=== PATIENT | female | born 1970 | race Caucasian/White ===

== ENCOUNTER 2021-02-02 14:37 | Outpatient (CLI) | payer BC, SELFPAY ==
[2021-02-02 16:19] LABS: Abs Immature Grans 0.01 10^3/uL (0.0-0.06); Absolute Basophil Count 0.04 10^3/uL (0.0-0.2); Absolute Eosinophil Count 0.25 10^3/uL (0.0-0.7); Absolute Lymphocyte Count 2.14 10^3/uL (1.2-3.4); Absolute Neutrophil Count 3.35 10^3/uL (1.2-6.7); Basophils % 0.6; HCT 39.3 % (36.0-46.0); HGB 13.2 g/dL (11.2-15.7); Immature Grans % 0.2; MCH 29.7 pg (27.0-33.0); MCHC 33.6 % (32.0-36.0); MCV 88.3 fL (80-95); MPV 9.2 fL (8.0-11.0); Monocytes % 7.9; Neutrophils % 53.3; Nucleated RBC 0 %; Platelet Count 292 10^3/uL (130-400); RBC 4.45 10^6/uL (3.93-5.22); RDW 12.8 % (11.7-14.6); RDW-SD 41.8 fL; WBC 6.29 10^3/uL (4.4-10.8)
[2021-02-02 17:07] LABS: ALT 32 U/L (14-59); AST 23 U/L (15-37); Albumin 3.8 g/dL (3.4-5.0); Alkaline Phosphatase 65 U/L (46-116); Anion Gap 6.4 mmol/L (3-11); BUN 9 mg/dL (7-18); Bilirubin, Total 0.3 mg/dL (0.2-1.0); CO2 28.6 mmol/L (21.0-32.0); CREATININE 0.7 mg/dL (0.55-1.02); Calcium 8.8 mg/dL (8.5-10.1); Calculated LDL 70 mg/dL (<100); Chloride 106 mmol/L (98-107); Cholesterol 160 mg/dL (<200); Glucose 117 mg/dL (74-106); HDL Cholesterol 84 mg/dL (40-60); Potassium 4.1 mmol/L (3.5-5.1); Sodium 141 mmol/L (136-145); Total Protein 6.9 g/dL (6.4-8.2); Triglyceride 34 mg/dL (<150)
[2021-02-02 17:43] LABS: Vitamin D 25 Total 29.8 ng/mL (30-100)
== END 2021-02-02 14:38 | disposition home or self-care (01) ==
PROVIDERS: Visit Provider Family Medicine
DX: Z00.00 Encounter for general adult medical examination without abnormal findings (principal)
CPT/HCPCS: 36415; 80053; 80061; 82306; 85025

== ENCOUNTER 2021-11-14 15:18 | Outpatient (REF) | payer BC, SELFPAY ==
[2021-11-16 11:42] LABS: COVID-19 RT-PCR UVMMC Result Negative (Negative)
== END 2021-11-14 15:19 | disposition home or self-care (01) ==
LOC: LBN 15:18
PROVIDERS: Visit Provider Physician Assistant Medical
DX: Z20.822 Contact with and (suspected) exposure to COVID-19 (principal); J06.9 Acute upper respiratory infection, unspecified
CPT/HCPCS: U0003

== ENCOUNTER 2022-08-05 16:19 | Outpatient (REF) | payer BC, SELFPAY ==
--- NOTE | 2022-08-05 13:30 | PAPFT_PTH ---
PATIENT: Susan Hobson LOC: [facility] U#:[id number] AGE/SX: 52/F ROOM: RE08/05/[address]: Ramandeep Elaine : 1970 BED: DIS: 08/05/2022 SPEC #: [id number] RECD: 08/05/22 17:39 STATUS: POLLY REQ #: [id number] FLOYD: 08/05/22 13:[address]: Ramandeep Elaine DEPT: [facility] Cytology RECD BY: Diane Aldana ENTERED: 08/05/22 17:40 SP TYPE: PAPFT OTHR DR: Marielena Local Tissues: 1 - CX/ENDOCX FOR PAP SMEARS Procedures: PAP THIN PREP/UVM Screening HPV DNA PROBE Comments: [id number]
== END 2022-08-05 16:20 | disposition home or self-care (01) ==
LOC: LBN 16:19
PROVIDERS: Visit Provider Advanced Practice Midwife
DX: Z12.4 Encounter for screening for malignant neoplasm of cervix (principal); Z11.51 Encounter for screening for human papillomavirus (HPV)
CPT/HCPCS: 88142; 87624

== ENCOUNTER → 2023-03-25 00:57 | Outpatient (CLI) | payer BC, SELFPAY ==
--- NOTE | 2023-03-25 13:39 | DI.RAD_ITS ---
Exam(s) XR KNEE LT 3V AP,LAT,FLYNN EXAM: XR KNEE LT 3V AP,LAT,FLYNN CLINICAL HISTORY: LT KNEE JOINT PAIN, M25.562, NO TRAUMA. TECHNIQUE: 2D digital imaging was performed of the left knee. Three images were obtained. AP, late ral and PA tunnel views were obtained. COMPARISON: No exams were available for comparison FINDINGS: BONES: No acute fracture is present. No bony destructive lesion is seen. 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 JOINTS: The knee is normally aligned. No joint effusion is seen. No loose body. SOFT TISSUE: Normal. IMPRESSION: 1. No acute fracture or dislocation. 2. 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 DATA REPOSITORY: RADIATION DOSE DELIVERED:
== END ==
PROVIDERS: PCP Physician Assistant; Visit Provider Physician Assistant
DX: M25.562 Pain in left knee (principal); D16.22 Benign neoplasm of long bones of left lower limb
CPT/HCPCS: 73562

== ENCOUNTER → 2023-06-28 00:41 | Outpatient (CLI) | payer BC, SELFPAY ==
--- NOTE | 2023-06-28 07:00 | DI.MRI_ITS ---
Exam(s) MR LOWER JOINT LT WO EXAM: MR LOWER JOINT LT WO CLINICAL HISTORY: L KNEE PAIN,osteochondrome lt tibia,tear lat meniscus,D16.22,S83.282a. TECHNIQUE: Multiplanar multisequence MRI was performed. COMPARISON: CR XR KNEE LT 3V AP,LAT,FLYNN from 03/25/2023 FINDINGS: BONES: There is no fracture or contusion pattern. Note is again made of a projection off the posterio r aspect of the proximal metaphysis of the tibia. It is most consistent with an osteochondroma. The re is mild hyperintense signal seen on the T2 weighted images in the distal aspect of the osteochondr kathrin. There also is small area of hyperintense signal adjacent to the osteochondroma. This can be se en with a bursitis. JOINTS: Articular cartilage is unremarkable. No significant joint effusion is seen. TENDONS: Extensor mechanism: Unremarkable. Medial retinaculum: Unremarkable. Lateral retinaculum: Unremarkable. Popliteus: Unremarkable. MUSCLES: Unremarkable. MENISCI: The medial meniscus is unremarkable. There is mild degenerative signal seen in the body of the medial meniscus. The lateral meniscus is unremarkable. SOFT TISSUES: Unremarkable. LIGAMENTS: Anterior Cruciate: There is a linear area of signal hypointensity paralleling the anterior cruciate l igament on the T2 weighted images. Differential considerations include an infrapatellar plica or a p artial ACL tear. Posterior Cruciate: Unremarkable. Medial Collateral:Unremarkable. Lateral Collateral: Unremarkable. OTHER: IMPRESSION: 1. No evidence of a meniscal tear. 2. Linear area of signal hypointensity paralleling the anterior cruciate ligament on the T2 weighted images. Differential considerations include an infrapatellar plica or a partial ACL tear. 3. Osteochondroma arising from the proximal tibia posteriorly. Mild hyperintense signal seen in the distal osteochondroma with this associated focus of hyperintensity adjacent to the osteochondromata. This can be seen with a bursitis. Please correlate clinically. DATA REPOSITORY:
== END ==
PROVIDERS: PCP Physician Assistant; Visit Provider Student in an Organized Health Care Education/Training Program
DX: D16.22 Benign neoplasm of long bones of left lower limb (principal); M25.562 Pain in left knee
CPT/HCPCS: 73721

== ENCOUNTER 2024-03-23 01:07 | Outpatient (CLI) | payer BC, SELFPAY ==
--- OUTSIDE RECORDS SUMMARY | 2024-03-23 01:09 | XMS_ITS | Clinical Summary ---
Author Organization [facility] Address [address] [place] [address] Care Team Providers Care Brick Catcher Name Role Phone Unknown, Provider Primary Care Provider Allergies No known active allergies Medications No known medications Active Problems Problem Noted Date Diagnosed Date Neoplasm of uncertain behavior of skin 1 Social History Tobacco Use Types Packs/Day Years Used Date Smoking Tobacco: Never Assessed Interpersonal Safety Answer Date Record ed Physically Hurt Never 01/27/2020 Verbally Threaten Not on file 01/27/2020 Sex and Gender Information Value Date Recorded Sex Assigned at Female 06/01/2021 10:49 EST Gender Identity Female 06/01/2021 10:49 EST Sexual Orientation Not on file Plan of Treatment Health Maintenance Due Date Last Done Comments Hepatitis C Screen 1970 Hepatitis B Vaccine (1 of 3 - 19+ 3-dose series) 05/23 COVID-19 Vaccine ( season) 2024 Care Teams Brick Catcher Relationship Specialty Start Date End Date Unknown, MD Chichi PCP - General 10/25/22
--- OUTSIDE RECORDS SUMMARY | 2024-03-23 01:10 | XMS_ITS | Encounter Summary ---
Author Organization [facility] Address [address] [place] [address] Care Team Providers Care Telecommunications Engineer Name Role Phone Jing Benson CREATIVE LEAD Primary Care Provider [phone] Encounter Details Date Type Department Care Team (Late st Contact Info) Description 05/10/2012 Results Only Imaging [facility] [phone] Jing Benson, CREATIVE LEAD [address] [place], [place] [id number] Social History Tobacco Use Types Packs/Day Years Used Date Smoking Tobacco: Never Assessed Sex and Gender Information Value Date Recorded Sex Assigned at Female 06/01/2021 10:49 EST Gender Identity Female 06/01/2021 10:49 EST Sexual Orientation Not on file documented as of this encounter Plan of Treatment Not on file documented as of this encounter Procedures Procedure Name Priority Date/Time Associated Diagnosis Comments MA MAMMO DIAG DIGITAL UNI ADDED VIEWS MARJORIE 05/22/2012 10:55 EST documented in this encounter Results * MA MAMMO DIAG DIGITAL UNI ADDED VIEWS MARJORIE (05/22/2012 10:55 EST) Anatomical Region Laterality Modality Other 05/22/2012 10:5 5 EST 05/22/2012 12:43 EST Narrative 05/22/2012 12:43 EST Comparison has been made to previous images. Right Breast Findings: (digital additional with CAD and 3D images with Tomosynthesis) There are scattered fibroglandular densities (25% - 50% fibroglandular). A questionable abnormality noted on the prior exam is evaluated with a repeat non-magnified view with CAD and 3D views with tomosynthesis. The area does not persist, consistent with normal fibroglandular tissue. There is no evidence of a persistent mass. IMPRESSION: RIGHT BREAST: Negative, no evidence of malignancy. Normal interval follow-up is recommended in 12 months. OVERALL ASSESSMENT - CATEGORY 1 - NEGATIVE END OF IMPRESSION Results and recommendations for follow-up were discussed with the patient by the applied technologist at the time of the exam. I have personally reviewed the images and the above interpretation and agree with the findings. Procedure Note Bernard Dykes MD - 05/22/2012 Comparison has been made to previous images. Right Breast Findings: (digital additional with CAD and 3D images with Tomosynthesis) There are scattered fibroglandular densities (25% - 50% fibroglandular). A questionable abnormality noted on the prior exam is evaluated with a repeat non-magnified view with CAD and 3D views with tomosynthesis. The area does not persist, consistent with normal fibroglandular tissue. There is no evidence of a persistent mass. IMPRESSION: RIGHT BREAST: Negative, no evidence of malignancy. Normal interval follow-up is recommended in 12 months. OVERALL ASSESSMENT - CATEGORY 1 - NEGATIVE END OF IMPRESSION Results and recommendations for follow-up were discussed with the patient by the applied technologist at the time of the exam. I have personally reviewed the images and the above interpretation and agree with the findings. Jing Benson NP IMArmando MAMMOGRAPHY FRANCISCO J SALDAÑA documented in this encounter Visit Diagnoses Not on filedocumented in this encounter Care Teams Telecommunications Engineer Relationship Specialty Start Date End Date Jing Benson, MAYKEL [address] [place] [address] PCP - General 01/05/11 03/31/21 documented as of this encounter
--- OUTSIDE RECORDS SUMMARY | 2024-03-23 01:10 | XMS_ITS | Encounter Summary ---
[place] [address] Care Team Providers Care Outpatient Surgery Rn Name Role Phone Edwar Velasco Primary Care Provider [phone] Encounter Details Date Type Department Care Team (Late Contact Info) Description 09/22/2023 9:00 AM EDT Telephone Pre-Admission Testing at [facility] [address] [place] [address] Social History Tobacco Use Types Packs/Day Years Used Date Smoking Tobacco: Never Smokeless Tobacco: Never Alcohol Use Standard Drinks/Week Comments Yes 0 (1 standard drink = 0.6 oz pur e alcohol) socially Sex and Gender Information Value Date Recorded Sex Assigned at Not on file Gender Identity Not on file Sexual Orientation Not on file documented as of this encounter Progress Notes * Tami Tapia RN - 09/22/2023 9:06 AM EDT Have you tested positive for COVID and had symptoms of Covid in the last 4 weeks? [x]No []Yes If Yes; Date of positive test: Type of test performed: Date of resolution of symptoms: documented in this encounter Plan of Treatment Not on file documented as of this encounter Visit Diagnoses Not on filedocumented in this encounter Care Teams Outpatient Surgery Rn Relationship Specialty Start Date End Date Edwar Velasco PA [address] [place] [address] PCP - General Internal Medicine 02/04/23 documented as of this encounter
--- OUTSIDE RECORDS SUMMARY | 2024-03-23 01:10 | XMS_ITS | Encounter Summary ---
Author Organization [facility] Address [address] [place] [address] Care Team Providers Care Complex Case Manager Name Role Phone Unavailable Primary Care Provider Unavailabl e Encounter Details Date Type Department Care Team (Latest Contact Info) Description 02/20/2007 9:02 EDT - 02/20/2007 11:59 EDT Hospital Encounter [facility] - Other [address] [place] [address] Stephanie Malagon MD Discharge Disposition: Auto Discharge Social History Tobacco Use Types Packs/Day Years Used Date Smoking Tobacco: Never Assessed Sex and Gender Information Value Date Recorded Sex Assigned at Female 06/01/2021 10:49 EST Gender Identity Female 06/01/2021 10:49 EST Sexual Orientation Not on file documented as of this encounter Discharge Disposition Disposition Code Departure Means Destination Auto Discharge documented in this encounter Plan of Treatment Not on file documented as of this encounter Visit Diagnoses Not on filedocumented in this encounter
--- OUTSIDE RECORDS SUMMARY | 2024-03-23 01:10 | XMS_ITS | Encounter Summary ---
Author Organization [facility] Address [address] [place] [address] Care Team Providers Care Machine Assembler Supervisor Name Role Phone KelleyJing Drew SAS ETL DEVELOPER Primary Care Provider [phone] Encounter Details Date Type Department Care Team (Late st Contact Info) Description 2018 Historical Results Only [facility] Radiology Results [address] [place] [address] Sophia Mcgraw PA [address] [place], [place] [address] Social History Tobacco Use Types Packs/Day Years Used Date Smoking Tobacco: Never Assessed Sex and Gender Information Value Date Recorded Sex Assigned at Female 06/01/2021 10:49 EST Gender Identity Female 06/01/2021 10:49 EST Sexual Orientation Not on file documented as of this encounter Plan of Treatment Not on file documented as of this encounter Procedures Procedure Name Priority Date/Time Associated Diagnosis Comments XR ANKLE LEFT 3 OR MORE VIEWS 2018 17:55 EST documented in this encounter Results * XR ANKLE LEFT 3 OR MORE VIEWS (2018 17:55 EST) Anatomical Region Laterality Modality Lower Extremities, Ankle Left Other 2018 17:5 5 EST Narrative 2018 17:55 EST ? EXAM: RADIOLOGY/ANKLE LEFT 3+VIEW ? EX. D/ (1719) ? CLINICAL INFORMATION: ? M25.472 COMPRESSION TYPE TRAUMA ? CALL REPORT TO SOPHIA MCGRAW [phone] ? EXAM: ??XR Left Ankle Complete, 3 or more Views ? EXAM DATE/TIME: ??2018 4:30 PM ? CLINICAL HISTORY: ??48 years old, female; Pain; Ankle and other: ? M25.472 compression type trauma; Left; Additional info: M25.472 ? compression type trauma, call report to sophia mcgraw [phone] ? TECHNIQUE: ??XR Left ankle 3 or more views. ? COMPARISON: ??No relevant prior studies available. ? FINDINGS: ? Anterolateral ankle soft tissue swelling is present. ? Normal bony alignment. ? No acute fracture. ? No asymmetric ankle mortise widening. ? Fifth metatarsal base is intact. ? No osteochondral lesion of the talar dome. ? No evidence of tarsal coalition. ? No concerning bone lesion. ? Joint spaces are well maintained. ? IMPRESSION: ? Anterolateral ankle soft tissue swelling. No evidence of acute ? fracture. ? REPORT SIGNED IN OTHER VENDOR SYSTEM 2018 ?Reported By: Chucky Martinez MD ? CC: ? Transcribed Date/Time: 2018 (1509) ? Fruit Sorter: ? Printed Date/Time: 12/17/2018 (0321) ? PAGE 1 ? Signed Report ? Procedure Note Hernan Martinez MD - 05/03/2019 EXAM: RADIOLOGY/ANKLE LEFT 3+VIEW EX. D/ (1719) CLINICAL INFORMATION: M25.472 COMPRESSION TYPE TRAUMA CALL REPORT TO SOPHIA MCGRAW [phone] EXAM: XR Left Ankle Complete, 3 or more Views EXAM DATE/TIME: 2018 4:30 PM CLINICAL HISTORY: 48 years old, female; Pain; Ankle and other: M25.472 compression type trauma; Left; Additional info: M25.472 compression type trauma, call report to sophia mcgraw [phone] TECHNIQUE: XR Left ankle 3 or more views. COMPARISON: No relevant prior studies available. FINDINGS: Anterolateral ankle soft tissue swelling is present. Normal bony alignment. No acute fracture. No asymmetric ankle mortise widening. Fifth metatarsal base is intact. No osteochondral lesion of the talar dome. No evidence of tarsal coalition. No concerning bone lesion. Joint spaces are well maintained. IMPRESSION: Anterolateral ankle soft tissue swelling. No evidence of acute fracture. REPORT SIGNED IN OTHER VENDOR SYSTEM 2018 Reported By: Chucky Martinez MD CC: Transcribed Date/Time: 2018 (9790) Fruit Sorter: Printed Date/Time: 12/17/2018 (2156) PAGE 1 Signed Report Sophia DAN IMG DIAGNOSTIC IMAGI NG ORDERABLES documented in this encounter Visit Diagnoses Not on filedocumented in this encounter Care Teams Machine Assembler Supervisor Relationship Specialty Start Date End Date Jing Benson NP [address] [place] [address] PCP - General 01/05/11 03/31/21 documented as of this encounter
--- OUTSIDE RECORDS SUMMARY | 2024-03-23 01:10 | XMS_ITS | Encounter Summary ---
Author Organization [facility] Address [address] [place] [address] Care Team Providers Care Manager Ob Name Role Phone Nancy Corey MD Primary Care Provider [phone] Encounter Details Date Type Department Care Team (Late st Contact Info) Description 06/01/2021 Prep for Procedure [facility] General Surgery [address] [place] [address] Donte Ellison MD [address] [facility] [address] [place] [address] Social History Tobacco Use Types Packs/Day Years [...] on filedocumented in this encounter Care Teams Manager Ob Relationship Specialty Start Date End Date Nancy Corey MD [address] [place] [phone] PCP - General Family Medicine - Primary Care 04/01/21 10/24/22 documented as of this encounter
--- OUTSIDE RECORDS SUMMARY | 2024-03-23 01:10 | XMS_ITS | Encounter Summary ---
Author Organization [facility] Address [address] [place] [address] Care Team Providers Care Repairer Evaporator Name Role Phone Unknown, Provider Primary Care Provider [phone] Encounter Details Date Type Department Care Team (Late st Contact Info) Description 02/23/2007 Results Only [facility] - [facility] [address] [place] [address] Stephanie Dove DO [facility] [address] [place] [address] Social History Tobacco Use Types Packs/Day Years Used Date Smoking Tobacco: Never Assessed Sex and Gender Information Value Date Recorded Sex Assigned at Female 06/01/2021 10:49 EST Gender Identity Female 06/01/2021 10:49 EST Sexual Orientation Not on file documented as of this encounter Plan of Treatment Not on file documented as of this encounter Procedures Procedure Name Priority Date/Time Associated Diagnosis Comments QUANT BETA HCG, Routine 02/23/2007 9:45 EDT documented in this encounter Results * (ABNORMAL) HCG (02/23/2007 9:45 EDT) HCG 44(H) <4 mIU/ml [facility] Comment: Reference Range: Positive = >10 Borderline = 4-10 recommend repeat. Negative = <4 02/23/2007 9:45 EDT 02/23/2007 11:49 EDT Anna D'Shy DO CHEMISTRY & BLOOD GAS ORDERABLES [facility] [address] [place] [address] documented in this encounter Visit Diagnoses Not on filedocumented in this encounter Care Teams Repairer Evaporator Relationship Specialty Start Date End Date Unknown, Provider, PCP - General 10/15/08 01/04/11 documented as of this encounter
--- OUTSIDE RECORDS SUMMARY | 2024-03-23 01:10 | XMS_ITS | Encounter Summary ---
Author Organization [facility] [place] [address] Care Team Providers Care Radio Station Engineer Name Role Phone Edwar Velasco Primary Care Provider [phone] Encounter Details Date Type Department Care Team (Late st Contact Info) Description 09/29/2023 Telephone [place] [address] Marisol Hebert Social History Tobacco Use Types Packs/Day Years Used Date Smoking Tobacco: Never Smokeless Tobacco: Never Alcohol Use Standard Drinks/Week Comments Yes 0 (1 standard drink = 0.6 oz pur e alcohol) socially [facility] Inpatient Questions Answer Date Recorded Does Anyone Try to Keep You From Having Contact with Others or Doing Things Outside Your Home? no 09/29/2023 Feels Threatened by Someone no 09/2023 Feels Unsafe at Home or Work/School no 09/29/2023 Physical Signs of Abuse Present no 09/29/2023 Sex and Gender Information Value Date Recorded Sex Assigned at Not on file Gender Identity Not on file Sexual Orientation Not on file documented as of this encounter Miscellaneous Notes * Telephone Encounter - Marisol Hebert - 09/29/2023 11:42 AM EDT Spoke with patient today to get her scheduled for a 2 week f/u wound check and suture removal with Dr. Doyle. They are going to call us when they are ready to schedule this appointment. 2 weeks for suture removal with ANDREE or Vivek. Per Artemio. LYNN 09/29/2023 documented in this encounter Plan of Treatment Not on file documented as of this encounter Visit Diagnoses Not on filedocumented in this encounter Care Teams Radio Station Engineer Relationship Specialty Start Date End Date Edwar Velasco PA [address] [place] [address] PCP - General Internal Medicine 02/04/23 documented as of this encounter
--- OUTSIDE RECORDS SUMMARY | 2024-03-23 01:10 | XMS_ITS | Encounter Summary ---
Author Organization [facility] Address [address] [place] [address] Care Team Providers Care Devulcanizer Head Name Role Phone Jing Benson LACTATION COORDINATOR Primary Care Provider [phone] Encounter Details Date Type Department Care Team (Latest Contact Info) Description 2018 15:23 EST - 2018 23:59 EST Hospital Encounter [facility] [address] [place] [address] Unknown, Provider, Discharge Disposition: Home or Self Care Social History Tobacco Use Types Packs/Day Years Used Date Smoking Tobacco: Never Assessed Sex and Gender Information Value Date Recorded Sex Assigned at Female 06/01/2021 10:49 EST Gender Identity Female 06/01/2021 10:49 EST Sexual Orientation Not on file documented as of this encounter Discharge Disposition Disposition Code Departure Means Destination Home or Self Fdc documented in this encounter Plan of Treatment Not on file documented as of this encounter Visit Diagnoses Not on filedocumented in this encounter Care Teams Devulcanizer Head Relationship Specialty Start Date End Date Jing Benson, LACTATION COORDINATOR [address] [place] [address] PCP - General 01/05/11 03/31/21 documented as of this encounter
--- OUTSIDE RECORDS SUMMARY | 2024-03-23 01:10 | XMS_ITS | Encounter Summary ---
Author Organization [facility] Address [address] [place] [address] Care Team Providers Care Price Changer Name Role Phone Kelley Jing Drew AUDIO VISUAL PROJECT MANAGER Primary Care Provider [phone] Encounter Details Date Type Department Care Team (Late st Contact Info) Description 05/12/2016 Historical Results Only [facility] Radiology Results [address] [place], [place] [id number] LeoncioJosefina MD [address] [place] [address] [address] [place] [address] Social History Tobacco Use Types Packs/Day Years Used Date Smoking Tobacco: Never Assessed Sex and Gender Information Value Date Recorded Sex Assigned at Female 06/01/2021 10:49 EST Gender Identity Female 06/01/2021 10:49 EST Sexual Orientation Not on file documented as of this encounter Plan of Treatment Not on file documented as of this encounter Procedures Procedure Name Priority Date/Time Associated Diagnosis Comments MA BREAST SCREENING BILATERAL 05/12/2016 16:20 EST documented in this encounter Results * MA BREAST SCREENING BILATERAL (05/12/2016 16:20 EST) Anatomical Region Laterality Modality Breast Bilateral Other 05/12/2016 16:2 0 EST Narrative 05/14/2016 8:50 EST ? EXAM: MAMMOGRAM/DIGITAL MAMMO LOLY SCREEN ??EX. D/ (1620) ? CLINICAL INFORMATION: ? Z12.31 SCREENING MAMMOGRAM ? TECHNIQUE: ??Full field digital whole breast 2D (C-view) and 3D CC and ? MLO views of both breasts were obtained. CAD technology was utilized. ? INDICATION: ??Screening ? FINDINGS: ??The fibroglandular patterns of the breasts are normal. ? There has been no change when compared to previous mammograms and ? there is no mammographic evidence of cancer. The breasts are of ? heterogeneous density, which limits the sensitivity of mammography for ? the detection of malignancy. ? FINAL ASSESSMENT: ??BILATERAL BREAST - Category 1 - Negative. Routine ?mammographic follow-up is recommended. ? These results will be communicated to your patient via a lay letter ? from Radiology. ??If any additional imaging is needed we will contact ? your patient directly. ? JSP:kad ?Reported By: Lucas Flower MD ? CC: Josefina Fang MD ? Transcribed Date/Time: 05/14/2016 (0850) ? Tombstone Erector Helper: SHIRA ? Printed Date/Time: 12/08/2018 (2227) ? PAGE 1 ? Signed Report ? Procedure Note Lucas Flower MD - 05/02/2019 EXAM: MAMMOGRAM/DIGITAL MAMMO LOLY SCREEN EX. D/ (1620) CLINICAL INFORMATION: Z12.31 SCREENING MAMMOGRAM TECHNIQUE: Full field digital whole breast 2D (C-view) and 3D CCand MLO views of both breasts were obtained. CAD technology wasutilized. INDICATION: Screening FINDINGS: The fibroglandular patterns of the breasts are normal. There has been no change when compared to previous mammograms and there is no mammographic evidence of cancer. The breasts are of heterogeneous density, which limits the sensitivity of mammographyfor the detection of malignancy. FINAL ASSESSMENT: BILATERAL BREAST - Category 1 - Negative.Routine mammographic follow-up is recommended. These results will be communicated to your patient via a lay letter from Radiology. If any additional imaging is needed we willcontact your patient directly. JSP:kad Reported By: Lucas Flower MD CC: Josefina Fang MD Transcribed Date/Time: 05/14/2016 (0850) Tombstone Erector Helper: SHIRA Printed Date/Time: 12/08/2018 (2220) PAGE 1 Signed Report Josefina Fang MD IMG MAMMOGRAPHY FRANCISCO J SALDAÑA documented in this encounter Visit Diagnoses Not on filedocumented in this encounter Care Teams Price Changer Relationship Specialty Start Date End Date Jing Benson NP [address] [place] [address] PCP - General 01/05/11 03/31/21 documented as of this encounter
--- OUTSIDE RECORDS SUMMARY | 2024-03-23 01:10 | XMS_ITS | Encounter Summary ---
Author Organization [facility] Address [address] [place] [address] Care Team Providers Care Jet Dyeing Machine Operator Name Role Phone Unavailable Primary Care Provider Unavailabl e Encounter Details Date Type Department Care Team (Latest Contact Info) Description 03/31/2005 10:33 EDT - 03/31/2005 11:59 EDT Hospital Encounter [facility] - Other [address] [place] [address] Eileen Saucedo PA-C [address] [place] [address] [phone] Discharge Disposition: Auto Discharge Social History Tobacco [...] Procedure Name Priority Date/Time Associated Diagnosis Comments TSH Routine 03/31/2005 11:04 EDT LIPID PROFILE (INCLUDES CHOLESTEROL, TRIGLYCERIDES, HDL, LDL) Routine 03/31/2005 11:04 EDT COMPREHENSIVE METABOLIC PANEL (CMP) Routine 03/31/2005 11:04 EDT documented in this encounter Results * TSH (03/31/2005 11:04 EDT) TSH 0.88 0.35 - 5.50 uIU/ml [facility] 03/31/2005 11:0 4 EDT 03/31/2005 11:04 EDT Eileen Saucedo PA-C CHEMISTRY & BLOOD GA S ORDERABLES Performing Organization Address [facility] de Phone Number [facility] [address] [place] [address] * LIPID PROFILE (INCLUDES CHOLESTEROL, TRIGLYCERIDES, HDL, LDL) (03/31/2005 11:04 EDT) Cholesterol 131 mg/dl [facility] Comment: Desirable:<200 Borderline:200-239 High Risk:>pi=443 Triglycerides 47 35 - 160 mg/dl [facility] HDL 69 mg/dl [facility] Comment: Highly Desirable:>60 Desirable:35-60 High Risk:<35 LDL, Calculated 53 mg/dl [facility] Comment: Desirable:<130 Borderline:130-159 High Risk:>mv=180 Chol/HDL Ratio 1.9 [facility] Fasting? Yes [facility] 03/31/2005 11:0 4 EDT 03/31/2005 11:04 EDT Eileen Saucedo PA-C CHEMISTRY & BLOOD [place] S ORDERABLES Performing Organization Address [facility] de Phone Number [facility] [address] [place] [address] * (ABNORMAL) COMPREHENSIVE METABOLIC PANEL (03/31/2005 11:04 EDT) Potassium 4.2 3.5 - 5.0 mEq/L [facility] Sodium 140 136 - 145 mEq/L [facility] Chloride 104 96 - 110 mEq/L [facility] CO2 28 24 - 32 mEq/L [facility] Total Alkaline Phosphatase 53 38 - 126 U/L [facility] Bilirubin, Total 0.9 0.2 - 1.3 mg/dl [facility] AST 23 15 - 46 U/L [facility] ALT 28 9 - 52 U/L [facility] Albumin 4.3 3.4 - 4.9 g/dl [facility] Total Protein 7.2 6.5 - 8.3 g/dl [facility] Creatinine 0.8 0.7 - 1.5 mg/dl [facility] BUN 9(L) 10 - 26 mg/dl [facility] Calcium 9.6 8.5 - 10.5 mg/dl [facility] Calculated Calcium 9.7 8.5 - 10.5 mg/dl [facility] Glucose, Serum 85 70 - 110 mg/dl [facility] Fasting? Yes [facility] Albumin/Globulin Ratio 1.5 [facility] 03/31/2005 11:0 4 EDT 03/31/2005 11:04 EDT Eileen Saucedo PA-C CHEMISTRY & BLOOD GA S ORDERABLES Performing Organization Address City/State/[facility] Co de Phone Number [facility] [address] [place] [address] documented in this encounter Visit Diagnoses Not on filedocumented in this encounter
--- OUTSIDE RECORDS SUMMARY | 2024-03-23 01:10 | XMS_ITS | Encounter Summary ---
Author Organization [facility] Address [address] [place] [address] Care Team Providers Care Tow Feeder Name Role Phone Nancy Corey MD Primary Care Provider [phone] Unknown, Provider Primary Care Provider [phone] Encounter Details Date Type Department Care Team (Late st Contact Info) Description 04/02/2021 Results Only Imaging [facility] Radiology Results [address], [place] [address] Nancy Corey MD [address] [place] [phone] Social History Tobacco Use Types Packs/Day Years [...] Date/Time Associated Diagnosis Comments MA BREAST SCREENING MARJORIE BILATERAL 04/02/2021 9:32 EDT documented in this encounter Results * MA BREAST SCREENING MARJORIE BILATERAL (04/02/2021 9:32 EDT) Anatomical Region Laterality Modality Breast Bilateral Mammography 04/02/2021 9:32 EDT Narrative 04/02/2021 9:32 EDT ? EXAM: MAMMOGRAM/MAMMO BILATERAL SCREEN W ??EX. D/ (1136) ? CLINICAL INFORMATION: ? Z12.31 SCREENING ? INDICATION: Z12.31 SCREENING SCREENING ??May 12 16 ? COMPARISON: ??Comparison has been made to previous images. ? TECHNIQUE: ??Full field digital whole breast 2D (C-view) and 3D CC and ? MLO views of both breasts were obtained. CAD technology was utilized. ? FINDINGS: ??The fibroglandular patterns of the breasts are normal. ? There has been no change when compared to previous mammograms and ? there is no mammographic evidence of cancer. ??The breast tissue is of ? heterogeneous density, which may obscure small masses. ? FINAL ASSESSMENT: ??BILATERAL BREAST - Category 1 - Negative. Routine ? mammographic follow-up is recommended. ? These results will be communicated to your patient via a lay letter ? from Radiology. ??If any additional imaging is needed we will contact ? your patient directly. ? REPORT SIGNED IN OTHER VENDOR SYSTEM 04/02/2021 ?Reported By: Lucas Flower MD ? CC: ? Transcribed Date/Time: 04/02/2021 (2032) ? Asphalt Roller Person: ? Printed Date/Time: 04/02/2021 (4527) ? PAGE 1 ? Signed Report ? Procedure Note Lucas Flower MD - 04/02/2021 EXAM: MAMMOGRAM/MAMMO BILATERAL SCREEN W EX. D/ (1136) CLINICAL INFORMATION: Z12.31 SCREENING INDICATION: Z12.31 SCREENING SCREENING May 12 COMPARISON: Comparison has been made to previous images. TECHNIQUE: Full field digital whole breast 2D (C-view) and 3D CCand MLO views of both breasts were obtained. CAD technology wasutilized. FINDINGS: The fibroglandular patterns of the breasts are normal. There has been no change when compared to previous mammograms and there is no mammographic evidence of cancer. The breast tissue isof heterogeneous density, which may obscure small masses. FINAL ASSESSMENT: BILATERAL BREAST - Category 1 - Negative.Routine mammographic follow-up is recommended. These results will be communicated to your patient via a lay letter from Radiology. If any additional imaging is needed we willcontact your patient directly. REPORT SIGNED IN OTHER VENDOR SYSTEM 04/02/2021 Reported By: Lucas Flower MD CC: Transcribed Date/Time: 04/02/2021 (0932) Asphalt Roller Person: Printed Date/Time: 04/02/2021 (2975) PAGE 1 Signed Report Nancy Corey MD IMG MAMMOGRAPHY FRANCISCO J SALDA[facility] documented in this encounter Visit Diagnoses Not on filedocumented in this encounter Care Teams Tow Feeder Relationship Specialty Start Date End Date Nancy Corey MD [address] [place] [address] [phone] PCP - General Family Medicine - Primary Care 04/01/21 10/24/22 Unknown, Provider, PCP - General 10/25/22 documented as of this encounter
--- OUTSIDE RECORDS SUMMARY | 2024-03-23 01:10 | XMS_ITS | Encounter Summary ---
Author [facility] [place] [address] Care Team Providers Care Optometry Teacher Name Role Phone Edwar Velasco Primary Care Provider [phone] Encounter Details Date Type Department Care Team (Late st Contact Info) Description 10/04/2023 Telephone [place] [phone] Saroj Kim Social History Tobacco Use Types Packs/Day Years Used Date Smoking Tobacco: Never Smokeless Tobacco: Never Alcohol Use Standard Drinks/Week Comments Yes 0 (1 standard drink = 0.6 oz pur e alcohol) socially DH IPV Inpatient Questions Answer Date Recorded Does Anyone [...] encounter Miscellaneous Notes * Telephone Encounter - Saroj Kim - 10/04/2023 1:58 PM EDT Spoke to patient to confirm testing appointment. Offered to schedule 2 week wound check/suture removal. Patient declined to schedule, stated she was told it was ok to remove sutures at home. documented in this encounter Plan of Treatment Not on file documented as of this encounter Visit Diagnoses Not on filedocumented in this encounter Care Teams Optometry Teacher Relationship Specialty Start Date End Date Edwar Velasco PA [address] [place] [address] PCP - General Internal Medicine 02/04/23 documented as of this encounter
--- OUTSIDE RECORDS SUMMARY | 2024-03-23 01:10 | XMS_ITS | Encounter Summary ---
Author Organization [facility] Address [address] [place] [address] Care Team Providers Care Crematorium Operator Name Role Phone Jing Benson METAL DRILL PRESS OPERATOR Primary Care Provider Encounter Details Date Type Department Care Team (Late st Contact Info) Description 01/23/2016 Historical Results Only [facility] Rad[place] Results [address] [place] [address] Deb Jordan, PA [address] [place] [phone] Social History Tobacco Use Types Packs/Day Years Used Date Smoking Tobacco: Never Assessed Sex and Gender Information Value Date Recorded Sex Assigned at Female 06/01/2021 10:49 EST Gender Identity Female 06/01/2021 10:49 EST Sexual Orientation Not on file documented as of this encounter Plan of Treatment Not on file documented as of this encounter Procedures Procedure Name Priority Date/Time Associated Diagnosis Comments MR SHOULDER WO CONTRAST LEFT 01/23/2016 15:06 EDT documented in this encounter Results * MR SHOULDER WO CONTRAST LEFT (01/23/2016 15:06 EDT) Anatomical Region Laterality Modality Upper Extremities Left Other 01/23/2016 15:0 6 EDT Narrative 01/24/2016 9:07 EDT ? EXAM: MAGNETIC RESONANCE IMAGING/SHOULDER EX. D/ (2032) ? CLINICAL INFORMATION: ? LEFT SHOULDER PAIN;EVALUATE FOR POSSIBLE ROTATOR ? CUFF TEAR ? INDICATION: LEFT SHOULDER PAIN;EVALUATE FOR POSSIBLE ROTATOR: CUFF ? TEAR. ? COMPARISON: Left shoulder radiograph 12/31/2015. ? TECHNIQUE: Noncontrast MRI scan of the left shoulder was performed. ? Coronal and axial proton density and fat-suppressed T2-weighted and ? sagittal T1 and fat-suppressed T2-weighted scans were obtained. ? FINDINGS: ? There is minimal degenerative arthrosis of the acromioclavicular ? joint. The subacromial-subdeltoid space is unremarkable. There is a ? tiny bursal sided partial tear of the distal supraspinatus tendon ? seen on coronal T2-weighted images 6, 7 and 8. No full-thickness tear ? of the supraspinatus tendon is identified. The infraspinatus, ? subscapularis and teres minor tendons have normal appearances. ? There is a small amount of fluid within the biceps tendon sheath ? consistent with mild tenosynovitis. There is swelling and increased ? signal within the substance of the biceps tendon as it enters the ? glenohumeral joint from the bicipital groove consistent with ? tendinosis. ? The anterior inferior glenoid labrum is indistinct, swollen and ? increased in signal on axial images 8 and 9. The anterior band of the ? inferior glenohumeral ligament is swollen, increased in signal and ? indistinct. The findings are consistent with a tear of the anterior ? inferior glenoid labrum and ligamento-labral complex. The remainder ? of the glenoid labrum appears intact. No Hill-Sachs deformity is ? seen. ? IMPRESSION: ? 1. Tear of the anterior inferior glenoid labrum and ligamento-labral ? complex. ? 2. Tiny bursal sided partial tear of the distal supraspinatus tendon. ? 3. Mild biceps tenosynovitis and tendinosis. ? REPORT SIGNED IN OTHER VENDOR SYSTEM 01/24/2016 ?Reported By: Lorenzo Cintron MD ? CC: ? Transcribed Date/Time: 01/24/2016 (0907) ? Rn Rehab: ? Printed Date/Time: 12/07/2018 (2313) ? PAGE 1 ? Signed Report ? Procedure Note Lorenzo Cintron MD - 05/02/2019 EXAM: MAGNETIC RESONANCE IMAGING/SHOULDER EX. D/ (2032) CLINICAL INFORMATION: LEFT SHOULDER PAIN;EVALUATE FOR POSSIBLE ROTATOR CUFF TEAR INDICATION: LEFT SHOULDER PAIN;EVALUATE FOR POSSIBLE ROTATOR: CUFF TEAR. COMPARISON: Left shoulder radiograph 12/31/2015. TECHNIQUE: Noncontrast MRI scan of the left shoulder was performed. Coronal and axial proton density and fat-suppressed T2-weighted and sagittal T1 and fat-suppressed T2-weighted scans were obtained. FINDINGS: There is minimal degenerative arthrosis of the acromioclavicular joint. The subacromial-subdeltoid space is unremarkable. There is a tiny bursal sided partial tear of the distal supraspinatus tendon seen on coronal T2-weighted images 6, 7 and 8. No full-thicknesstear of the supraspinatus tendon is identified. The infraspinatus, subscapularis and teres minor tendons have normal appearances. There is a small amount of fluid within the biceps tendon sheath consistent with mild tenosynovitis. There is swelling and increased signal within the substance of the biceps tendon as it enters the glenohumeral joint from the bicipital groove consistent with tendinosis. The anterior inferior glenoid labrum is indistinct, swollen and increased in signal on axial images 8 and 9. The anterior band ofthe inferior glenohumeral ligament is swollen, increased in signal and indistinct. The findings are consistent with a tear of the anterior inferior glenoid labrum and ligamento-labral complex. The remainder of the glenoid labrum appears intact. No Hill-Sachs deformity is seen. IMPRESSION: 1. Tear of the anterior inferior glenoid labrum andligamento-labral complex. 2. Tiny bursal sided partial tear of the distal supraspinatustendon. 3. Mild biceps tenosynovitis and tendinosis. REPORT SIGNED IN OTHER VENDOR SYSTEM 01/24/2016 Reported By: Lorenzo Cintron MD CC: Transcribed Date/Time: 01/24/2016 (0907) Rn Rehab: Printed Date/Time: 12/07/2018 (7630) PAGE 1 Signed Report Deb DAN IMG MRI ORDERABLES documented in this encounter Visit Diagnoses Not on filedocumented in this encounter Care Teams Crematorium Operator Relationship Specialty Start Date End Date Jing Benson, MAYKEL [address] [place] [address] PCP - General 01/05/11 03/31/21 documented as of this encounter
--- OUTSIDE RECORDS SUMMARY | 2024-03-23 01:10 | XMS_ITS | Encounter Summary ---
Author Organization [facility] Address [address] [place] [address] Care Team Providers Care Retail Tire Sales Manager Name Role Phone Jing Benson INSPECTOR PRECISION ASSEMBLY Primary Care Provider [phone] Encounter Details Date Type Department Care Team (Latest Contact Info) Description 12/31/2015 7:05 EDT - 12/31/2015 23:59 EDT Hospital Encounter [facility] [address] [place] [address] Unknown, Provider, Discharge Disposition: Home or Self [...] on filedocumented in this encounter Care Teams Retail Tire Sales Manager Relationship Specialty Start Date End Date Jing Benson, INSPECTOR PRECISION ASSEMBLY [address] [place] [address] PCP - General 01/05/11 03/31/21 documented as of this encounter
--- OUTSIDE RECORDS SUMMARY | 2024-03-23 01:10 | XMS_ITS | Referral Summary ---
Author Organization [facility] Address [address] [place] [address] Care Team Providers Care Java Technical Manager Name Role Phone Unknown, Provider Primary Care [...] Orientation Not on file Plan of Treatment Not on file Care Teams Java Technical Manager Relationship Specialty Start Date End Date Unknown, Provider, PCP - General 10/25/22
--- OUTSIDE RECORDS SUMMARY | 2024-03-23 01:10 | XMS_ITS | Encounter Summary ---
Author Organization [facility] Address [address] [place] [address] Care Team Providers Care Aerial Crop Duster Name Role Phone Jing Benson SNATH HANDLE ASSEMBLER Primary Care Provider [phone] Encounter Details Date Type Department Care Team (Latest Contact Info) Description 05/12/2016 13:20 EST - 05/12/2016 23:59 EST Hospital Encounter [facility] [address] [place] [address] Unknown, Provider, Discharge Disposition: Home or Self Care Social History Tobacco Use Types Packs/Day Years Used Date Smoking Tobacco: Never Assessed Sex and Gender Information Value Date Recorded Sex Assigned at Female 06/01/2021 10:49 EST Gender Identity Female 06/01/2021 10:49 EST Sexual Orientation Not on file documented as of this encounter Discharge Disposition Disposition Code Departure Means Destination Home or Self Snf documented in this encounter Plan of Treatment Not on file documented as of this encounter Visit Diagnoses Not on filedocumented in this encounter Care Teams Aerial Crop Duster Relationship Specialty Start Date End Date Jing Benson, SNATH HANDLE ASSEMBLER [address] [place] [address] PCP - General 01/05/11 03/31/21 documented as of this encounter
--- OUTSIDE RECORDS SUMMARY | 2024-03-23 01:10 | XMS_ITS | Encounter Summary ---
Author Organization [facility] Address [address] [place] [address] Care Team Providers Care Roughener Name Role Phone Unavailable Primary Care Provider Unavailabl e Encounter Details Date Type Department Care Team (Latest Contact Info) Description 08/11/2004 11:01 EST - 08/11/2004 11:59 EST Hospital Encounter [facility] - Other [address] [place] [address] Jing Benson, BUSINESS SERVICES SALES REPRESENTATIVE [address] [place] [address] Discharge Disposition: Auto Discharge Social History Tobacco [...]
--- OUTSIDE RECORDS SUMMARY | 2024-03-23 01:10 | XMS_ITS | Encounter Summary ---
Author Organization [facility] Address [address] [place] [address] Care Team Providers Care Fondant Puff Maker Name Role Phone Jing Benson BOWLING FLOOR DESK CLERK Primary Care Provider [phone] Encounter Details Date Type Department Care Team (Late st Contact Info) Description 01/22/2016 Historical Results Only [facility] [place] Radiology Results [address] [place] [address] Deb Jordan, PA [address] [place] [phone] Social History Tobacco Use Types Packs/Day [...] on filedocumented in this encounter Care Teams Fondant Puff Maker Relationship Specialty Start Date End Date Jing Benson BOWLING FLOOR DESK CLERK [address] [place] [place] [address] PCP - General 01/05/11 03/31/21 documented as of this encounter
--- OUTSIDE RECORDS SUMMARY | 2024-03-23 01:10 | XMS_ITS | Encounter Summary ---
Author Organization [facility] Address [address] [place] [address] Care Team Providers Care Active Directory Specialist Name Role Phone Nancy Corey MD Primary Care Provider [phone] Reason for Referral * Referral (Routine/Next Available) - Receiving Office to Obtain Authorization Specialty Diagnoses / Procedures Referred By Contac t Referred To Contact Diagnoses Due for screening Procedures COLONOSCOPY Donte Ellison MD [address] [place] [phone] Referral ID Status Reason Start Date Expiration Date Visits Requested Visits Authorized [id number] Receiving Office to Obtain Authorization 1 1 Reason for Visit * Referral (Routine/Next Available) - Receiving Office to Obtain Authorization Specialty Diagnoses / Procedures Referred By Contac t Referred To Contact Diagnoses Due for screening Procedures COLONOSCOPY Donte Ellison MD [address] [place] [phone] Referral ID Status Reason Start Date Expiration Date Visits Requested Visits Authorized [id number] Receiving Office to Obtain Authorization 1 1 Encounter Details Date Type Department Care Team (Latest Contact Info) Description 06/01/2021 9:37 EST - 06/01/2021 23:59 EST Hospital Encounter [facility] [address] [place] [address] Donte Ellison MD [address] [place] [phone] Due for screening Discharge Disposition: Home or Self Care Social [...] Code Departure Means Destination Home or Self Care documented in this encounter Plan of Treatment Scheduled Orders Name Type Priority Associated Diagnoses Orde r Schedule COLONOSCOPY GI Routine Due for screening 1 Occurrences starting 06/01/2021 until 06/01/2021 documented as of this encounter Visit Diagnoses Diagnosis Due for screening documented in this encounter Care Teams Active Directory Specialist Relationship Specialty Start Date End Date Nancy Corey MD [address] [place] [phone] PCP - General Family Medicine - Primary Care 04/01/21 10/24/22 documented as of this encounter
--- OUTSIDE RECORDS SUMMARY | 2024-03-23 01:10 | XMS_ITS | Encounter Summary ---
Author Organization [facility] Address [address] [place] [address] Care Team Providers Care Marketing Operations Coordinator Name Role Phone MilviaJing sawyer Drew TANK TRUCK MECHANIC Primary Care Provider [phone] Encounter Details Date Type Department Care Team (Late st Contact Info) Description 12/31/[address] [facility] Radiology Results [address] [place] [address] Nancy Corey MD [address] [place] [phone] Social History Tobacco Use Types Packs/Day [...] Name Priority Date/Time Associated Diagnosis Comments XR SHOULDER LEFT 2 OR MORE VIEWS 12/31/2015 16:38 EDT documented in this encounter Results * XR SHOULDER LEFT 2 OR MORE VIEWS (12/31/2015 16:38 EDT) Anatomical Region Laterality Modality Left Other 12/31/2015 16:3 8 EDT Narrative 12/31/2015 16:42 EDT ? EXAM: RADIOLOGY/SHOULDER LT 2+VIEWS ? EX. D/ (1533) ? CLINICAL INFORMATION: ? M25.512 LT SHOULDER PAIN S/P POSSIBLE DISLOCATION ? MONTHS AGO,FAILED CONSERVATIVE TX INCLUDING PT ? INDICATION: M25.512 LT SHOULDER PAIN S/P POSSIBLE DISLOCATION: MONTHS ? AGO,FAILED CONSERVATIVE TX INCLUDING PT. ? COMPARISON: None. ? TECHNIQUE: 3 views of the left shoulder were obtained. ? FINDINGS: There are mild degenerative arthritic changes within the ? left acromioclavicular and glenohumeral joints. Bone density is ? normal. No fracture is seen. ? IMPRESSION: ? 1. Mild osteoarthritis. ? REPORT SIGNED IN OTHER VENDOR SYSTEM 12/31/2015 ?Reported By: Lorenzo Cintron MD ? CC: ? Transcribed Date/Time: 12/31/2015 (1642) ? Docket Clerk: ? Printed Date/Time: 12/07/2018 (5213) ? PAGE 1 ? Signed Report ? Procedure Note Lorenzo Cintron MD - 05/02/2019 EXAM: RADIOLOGY/SHOULDER LT 2+VIEWS EX. D/ (1533) CLINICAL INFORMATION: M25.512 LT SHOULDER PAIN S/P POSSIBLE DISLOCATION MONTHS AGO,FAILED CONSERVATIVE TX INCLUDING PT INDICATION: M25.512 LT SHOULDER PAIN S/P POSSIBLE DISLOCATION:MONTHS AGO,FAILED CONSERVATIVE TX INCLUDING PT. COMPARISON: None. TECHNIQUE: 3 views of the left shoulder were obtained. FINDINGS: There are mild degenerative arthritic changes within the left acromioclavicular and glenohumeral joints. Bone density is normal. No fracture is seen. IMPRESSION: 1. Mild osteoarthritis. REPORT SIGNED IN OTHER VENDOR SYSTEM 12/31/2015 Reported By: Lorenzo Cintron MD CC: Transcribed Date/Time: 12/31/2015 (0844) Docket Clerk: Printed Date/Time: 12/07/2018 (1673) PAGE 1 Signed Report Nancy Corey MD IMG DIAGNOSTIC IMAGI NG ORDERABLES documented in this encounter Visit Diagnoses Not on filedocumented in this encounter Care Teams Marketing Operations Coordinator Relationship Specialty Start Date End Date Jing Benson NP [address] [place] [address] PCP - General 01/05/11 03/31/21 documented as of this encounter
--- OUTSIDE RECORDS SUMMARY | 2024-03-23 01:10 | XMS_ITS | Encounter Summary ---
[place] [address] Care Team Providers Care Construction Person Name Role Phone Edwar Velasco Primary Care Provider [phone] Reason for Visit * Auth/Cert (Routine) Specialty Diagnoses / Procedures Referred By Av t Referred To Contact Diagnoses Venous insufficiency Varicose veins of both lower extremities Lower extremity varicose veins, venous insufficiency Procedures PRO ENDOVENOUS RF, 1ST VEIN PRO PHLEB VEINS - EXTREM 20+ ENDOVENOUS ABLATION THERAPY OF INCOMPETENT VEIN, EXTREMITY, FIRST VEIN (WRVU 5.3) STAB PHLEBECTOMY DINO VEINS 1 EXTREMITY MORE 20 INCISIONS (WRVU 6) Vladislav Fernández III, MD [address] [place] [address] [place] [address] [place] Referral ID Status Reason Start Date Expiration Date Visits Re quested Visits Authorized [id number] 1 1 Encounter Details Date Type Department Care Team ([facility] st Contact Info) Description 09/29/2023 7:30 AM EDT - 09/29/2023 10:10 AM EDT Surgery Operating Room [facility] [place] [address] Vladislav Fernández III, MD [address] [place] [address] [place] [address] ENDOVENOUS ABLATION THERAPY OF INCOMPETENT VEIN, EXTREMITY, FIRST VEIN (WRVU 5.3) Social History Tobacco Use Types Packs/Day Years [...] on file documented as of this encounter Last Filed Vital Signs Vital Sign Reading Time Taken Comments Blood Pressure 116/71 09/29/2023 10:00 AM EDT Pulse 65 09/29/2023 9:45 AM EDT Temperature 37.1 ??C (98.8 ??F) 09/29/2023 9:26 AM ED T Respiratory Rate 16 09/29/2023 10:00 AM EDT Oxygen Saturation 96% 09/29/2023 10:00 AM EDT Inhaled Oxygen Concentration - - Weight 64.9 kg (143 lb) 09/29/2023 6:39 AM EDT Height 168.9 cm (5' 6.5) 09/29/2023 6:39 AM EDT Body Mass Index 22.74 09/29/2023 6:39 AM EDT documented in this encounter Discharge Instructions * Patient Instructions* Jigar Kat PA - 09/29/2023 7:18 AM EDT Instructions following Vein Ablation and Stab Phlebectomy Activity: You should start walking the day after surgery. When sitting, try to elevate and prop your leg up on pillows as much as possible. No vigorous activity (such as jogging, running, biking) forat least 1 week or until cleared to do so at your follow-up visit. Wound care: Keep wraps on your leg for the next 48 hours. At that point you can remove all dressings and shower. Do not take a bath or swim for at least 2 weeks. You may have Dermabond (medical glue)or steri-strips (pieces of tape) on your skin. Keep them on until they fall off on their own. If you notice the steri-strips begin to peel off, you may trim them. Bruising around the incisions can benormal and will fade over time. Pain Medication: You may take acetaminophen (Tylenol) and ibuprofen (Advil, Motrin) for pain. If your surgeon provides you prescription pain medicine (opioid) you should not drive for 8 hours after taking it. Call Doctor for: Please call if you notice worsening redness or foul-smelling drainage from incision(s), if your pain is not controlled by pain medication or for fevers greater than 101.3F. Follow-up: You will have an ultrasound in 1-7 days after your procedure. If you do not receive the ultrasound appointment at the time of discharge, you will be called with a date and time. You will be seen by your surgeon (or associate provider) in the Vascular Clinic in approximately 2 weeks. Thisclinic appointment will be mailed to you. Please call our office ([phone]) if you do not receive the ultrasound appointment within 2 days or the clinic appointment within 10 days. For any questions or concerns please call [phone] documented in this encounter Medications at Time of Discharge Medication Sig Dispensed Refills Start Date End Date HYDROcodone-acetaminophen ([place]) 5-325 mg tablet Take 1 tablet by mouth every 6 hours as needed for Pain. 8 tablet 09/29/2023 documented as of this encounter Progress Notes * Rohit Eason RN - 09/29/2023 10:51 AM EDT Uneventful PACU recovery. See flowsheets/MAR for details. Pain controlled, tolerating PO intake, denies any N/V. Discharge instructions reviewed with patient and second learner (Jose Miguel), all questionsanswered and verbalized understanding. IV removed and assisted to personal vehicle via wheelchair. P atient met all discharge criteria and was discharged from PACU to home. documented in this encounter H&P Notes * Jigar Kat PA - 09/29/2023 7:10 AM EDT Vascular Surgery History and Physical HPI: Per patient's last office visit with Dr. Fernández on 04/20/24: Reason for Visit: Lower extremity varicose veins, venous insufficiency. History of Present Illness: Tyra Arnold is a 52 y.o. female seen in consultation at the request of Edwar Velasco PA-C regarding lower extremity varicose veins and venous insufficiency. Bilateral lower extremity venous duplex with reflux testing was performed today and is reviewed below, along with prior imaging studies. She has noted visible varicose veins right far more than left leg for quite a number of years. Overthe past several years, she has developed escalating symptoms principally in the right leg. She describes soreness and aching, as well as itching localized to the varicosities of the right knee/medial thigh and calf. She sits at work, or stands for long periods, and symptoms are quite limiting for both. In the left leg, her only potential venous symptom is itching behind the left knee. She has used knee-high 20-30 mmHg compression stockings for several years, finds them difficult to tolerate particularly in the summertime and does not note significant benefit. She elevates her legs some, doesyoga regularly including trapeze. She denies claudication symptoms. She has not had lower extremityulceration, DVT or phlebitis. She has not had any lower extremity surgery, did have a left patellarfracture. She reports she will have an MRI on Tuesday for left knee meniscus problem, as well as a possible benign tumor. She reports she is followed by [facility] in this regard. She complains of significant leg swelling. She is otherwise healthy and active. She denies chest pain or syncope, or any heart disease. She denies dyspnea or sleep apnea. She has not had any prior surgery. She has had sedation or general anesthesia for colonoscopy. She denies abdominal pain or problems. She never smoked. Patient denies changes to medical history, recent illnesses, chest pain, dyspnea, fevers, chills, nausea, vomiting. There are no hospital problems to display for this patient. Active Non-Hospital Problems Diagnosis Varicose veins of both lower extremities with pain Venous insufficiency of both lower extremities Neoplasm of uncertain behavior of skin Review of Systems: A full review encompassing at least 10 organ systems including general, neuro, pulm, cardiac, GI, , MSK, Endo, and Psych was negative other than listed in the HPI. Past Medical History: No past medical history on file. Past Surgical History: Past Surgical History: Procedure Laterality Date COLON SURGERY Functional Status/Social Hx: No history of tobacco use. 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 Social Hx: Social History Socioeconomic History Marital status: Spouse name: Not on file Number of children: Not on file Years of education: Not on file Highest education level: Not on file Occupational History Not on file Tobacco Use Smoking status: Never Smokeless tobacco: Never Substance and Sexual Activity Alcohol use: Yes Comment: socially Drug use: Yes Types: Marijuana Comment: Rare Sexual activity: Not on file Other Topics Concern Not on file Social History Narrative Not on file Social Determinants of Health Financial Resource Strain: Not on file Food Insecurity: Not on file Transportation Needs: Not on file Physical Activity: Not on file Intimate Partner Violence: Not At Risk (09/29/2023) IPV Inpatient Questions Prevent Contact with Others: no Feels Threatened by Someone: no Feels Unsafe at Home: no Physical Signs of Abuse Present: no Housing Stability: Not on file Family Hx: No history of DVT or thrombophilia, father and brother with varicose veins. She thinks her father may have had an aneurysm or blood clot, but is uncertain. No family history on file. Medications: No current facility-administered medications on file prior to encounter. No current outpatient medications on file prior to encounter. Allergies: No Known Allergies Physical Exam: Vital Signs: Temp: [36 ??C (96.8 ??F)] Heart Rate: [56] Resp: [16] BP: (122)/(74) SpO2: [99 %] Heart Rate from SpO2: -- BMI: Weight: 64.9 kg (143 lb) BMI (Calculated): 22.73 BMI Classification: Normal Weight General - NAD Neuro - Alert and Oriented, Motor Sensory grossly intact Skin - See lower extremity examination below No carotid bruits Cardiac - RRR, no murmurs Lungs - Clear, equal Abd - Soft, NT, ND, No palpable pulsatile masses Extremities - Right lower extremity: There are varicose veins from the medial distal thigh, through the medial distal calf. There are other varicosities of the anterior distal thigh coursing just lateral to the patella. Varicosities measure 6 mm diameter. There is no stasis dermatitis, ulcer, or edema. DP and PT pulses are readily palpable. Left lower extremity: There is only a focal varicosity of the medial mid-distal lower leg. There is no stasis dermatitis,ulcer, or edema. DP and PT pulses are readily palpable. Labs: No results for input(s): WBC, HGB, HCT, PLATELET in the last 72 hours. No results for input(s): NA, K, CL, CO2, BUN, CREATININE, PHOS, CALCIUM in the last72 hours. Studies/Imaging: Bilateral lower extremity venous duplex 04/20/2023: Findings: Segment Right Reflux? Diameter (mm) Depth (mm) Common Femoral Vein Competent Femoral Vein Competent Popliteal Competent GSV, Near SFJ Competent 4.6 10.1 GSV, Proximal Thigh Reflux 3.2 10.5 GSV, Mid Thigh Reflux 5.0 10.9 GSV, Distal Thigh Competent 1.5 11.9 GSV, Knee Competent 1.1 9.9 GSV Prox Calf Reflux 2.1 9.7 GSV, Mid Calf Reflux 1.9 7.1 GSV, Distal Calf Competent 1.2 4.6 SSV Competent Prox ASV Competent 3.1 7.6 Segment Left Reflux? Diameter (mm) Depth (mm) Common Femoral Vein Reflux Femoral Vein Competent Popliteal Competent GSV, Near SFJ Competent 4.8 7.0 GSV, Proximal Thigh Reflux 2.2 9.5 GSV, Mid Thigh Competent 2.7 12.2 GSV, Distal Thigh Competent 2.3 15.2 GSV, Knee Competent 1.8 8.0 GSV Prox Calf Competent 1.9 6.8 GSV, Mid Calf Competent 1.5 6.1 GSV, Distal Calf Competent 1.2 7.2 SSV Competent Interpretation: RIGHT: No evidence of significant reflux noted within the common femoral, femoral vein through the thigh, popliteal, or small saphenous vein. There is reflux in the great saphenous vein at the proximal to mid thigh and then in the proximal to mid calf (>2.0 seconds) which is consistent with superficial venous valvular incompetence. The remainder of the great saphenous vein is competent. There is a varicose vein associated with the great saphenous vein at the mid thigh which also associates with the varicose vein from the anterior saphenous vein in the mid thigh/just past it exiting the fascia. The other varicose vein (> 2.6 seconds) noted in the mid thigh travels down the medial thigh, knee, and calf. There are also varicose veins associated with the great saphenous vein in the proximal and distal calf. The anterior saphenous vein is noted to be competent while within the fascia. The anterior saphenous vein leaves the fascia in the mid thigh, becomes varicose/associates with the incompetent GSV varicose vein and travels down the distal anteromedial thigh, lateral knee, and anterolateral calf. The small saphenous vein is competent. LEFT: There is reflux in the common femoral vein (>2.3 seconds) which is consistent with isolated deep venous valvular incompetence. The remainder of the deep system is competent. There is isolated reflux in the great saphenous vein at the proximal thigh (>0.5 seconds) which is at threshold for superficial venous valvular incompetence. The remainder of the great saphenous vein is competent. There is a varicose vein noted at the proximal posterior calf (>0.5 seconds) which is at threshold for superficial venous valvular incompetence. The origin of this varicose vein was not identified. The small saphenous vein is competent. No evidence of bilateral common femoral, femoral vein through the thigh, or popliteal deep vein thrombus. No evidence of bilateral superficial vein thrombus. Comparison: No previous study in our vascular lab database for comparison. Assessment and Plan: Per patient's last office visit with Dr. Fernández on 04/20/24: Tyra Arnold presents with symptomatic right lower extremity varicose veins, and bilateral venous insufficiency. On the left, she has only a few modest varicosities and I am not convinced shehas any symptoms related to those. On the right, she has had escalating varicose vein symptoms thatare quite difficult despite several years of routine 20-30 mmHg compression stockings. She does nothave stasis dermatitis or ulceration. Bilateral lower extremity venous duplex findings are as follows: Right: There is no deep venous incompetence. The great saphenous vein is incompetent from proximal through mid thigh, where it gives off her varicose veins. It measures up to 5 mm diameter. There is no anterior or short saphenous incompetence. Left: There is common femoral but no other deep incompetence. The great saphenous vein is only incompetent at the proximal thigh, and measures less than or equal to 2.7 mm throughout. The great saphenous does communicate with modest varicosities in the proximal calf. There is no short saphenous incompetence. I discussed the natural history of varicose vein disease, which rarely progresses to stasis dermatitis and ulceration. I recommended compression stockings regardless of any other treatment. I discussed treatment of the right great saphenous vein, to eliminate superficial venous incompetence, decompress the varicosities, and reduce the risk of varicose vein recurrence. I discussed right lower extremity varicose vein excision, which will eliminate her current symptoms; sclerotherapy is not indicated for varicosities of this size. I discussed radiofrequency ablation or open stripping of the right great saphenous vein. Regarding ablation, I reviewed the risks of failure to ablate (2%), DVT (1-2 %), skin burn, nerve injury, and bleeding. Regarding open stripping as well as varicose vein excision, I reviewed the risks of bleeding, infection, wound problems, hematoma, pain, scarring, nerve injury, and DVT. Vein recurrence or progression of venous disease are possible. I discussed the typical recovery from these procedures, estimated 2 weeks out of work or with limited activities, except for radiofrequency ablation alone which tends to have a shorter recovery. After our discussion, she elects to proceed with right great saphenous vein radiofrequency ablation, and right lower extremity stab phlebectomy. This will be performed on an outpatient basis under general anesthesia and is low risk. She is otherwise healthy and active, should be reasonable risk forany of the several sites where we perform venous procedures. She understands that it will likely beseveral months before we can schedule her operation, she thinks she will proceed in July or August following a vacation in July. Patient has been consented and is agreeable to proceed as planned. NI Charles 09/29/2023 Pager: [phone] documented in this encounter Miscellaneous Notes * Op Note - Vladislav Fernández III, MD - 09/29/2023 7:49 AM EDT [facility] Operative Note [facility] [address] [place] [address] Patient Name: Tyra Hobson : [id number] MR#: [id number] Case Date: 09/29/2023 Case Scheduled Time: 729 Surgeon: Surgeon(s) and Role: * Vladislav Fernández III, MD - Primary * Jigar Kat PA - Physician Cilnical Scientist Preoperative diagnosis: Lower extremity varicose veins, venous insufficiency Postoperative diagnosis: Lower extremity varicose veins, venous insufficiency Procedure(s) (LRB): ENDOVENOUS ABLATION THERAPY OF INCOMPETENT VEIN, EXTREMITY, FIRST VEIN (WRVU 5.3) (Right) STAB PHLEBECTOMY DINO VEINS 1 EXTREMITY MORE 20 INCISIONS (WRVU 6) (Right) 1. Right great saphenous vein radiofrequency ablation 2. Right lower extremity stab phlebectomy, 40 stab incisions Anesthesia: General Estimated Blood Loss: 15 mL Specimens removed during surgery: Varicose veins, not sent to pathology Disposition: To postoperative recovery, extubated, for planned home discharge Condition: Stable Complications: None (Please see the Surgical Encounter Summary for any Implant and Specimen details pertinent to this patient.) Findings: The right great saphenous vein was enlarged and indents fascia from the saphenofemoral junction to the mid thigh, where it gave off large varicose veins and thereafter was not visible for a short segment, then very small. It did give off a posteriorly coursing branch fairly proximally in the thigh.There was also noted to be a separate anterior saphenous vein, but this was half the size/diameter of the great saphenous vein. Right great saphenous vein was treated with radiofrequency ablation from mid thigh to near the saphenofemoral junction, with 3 radiofrequency ablation cycles. Following ablation, the great saphenous vein was hyperechoic and thickened. There was no immediate common femoral vein/saphenofemoral junction DVT/thrombus. Stab phlebectomy was performed of varicose veins from the medial thigh, coursing across the anterior distal thigh, as well as through much of the medial to posterior and lateral calf. Surgical Indications: Tyra Arnold presents with symptomatic right lower extremity varicose veins, and bilateral venous insufficiency. On the left, she has only a few modest varicosities and I am not convinced she has any symptoms related to those. On the right, she has had escalating varicose vein symptoms that are quite difficult despite several years of routine 20-30 mmHg compression stockings. She does not have stasis dermatitis or ulceration. Right lower extremity venous duplex findings are as follows: There is no deep venous incompetence. The great saphenous vein is incompetent from proximal through mid thigh, where it gives off her varicose veins. It measures up to 5 mm diameter. There is no anterior or short saphenous incompetence. She elects to proceed with right great saphenous vein radiofrequency ablation, and right lower extremity stab phlebectomy. Procedure Description: Tyra Hobson was met in the preoperative area at [facility] and all relevant consents were signed. In a standing position, the varicose veins of the right leg were marked with permanent marker, and she concurred with the veins as marked. She was then brought to the operating room and placed supine. After induction of general anesthesia, the right lower extremity from the toes tothe abdominal wall was circumferentially prepped with chlorhexidine and sterilely draped. The foot was excluded in an impermeable bag. After a standard timeout during which patient, site, and procedure were identified, the right great saphenous vein was mapped from the saphenofemoral junction to the lower leg, with findings as above. The great saphenous vein at the mid thigh just above her varicose veins was accessed with ultrasound guidance with a micropuncture needle without difficulty. The wire was confirmed to be intravenous, and a 7 Uzbek sheath was placed. The radiofrequency catheter was advanced up to the level of the saphenofemoral junction, then pulled down to approximately 3-4 cmfrom the SFJ. This was confirmed in a vertical and horizontal view. It was marked at this location.Then the standard tumescent mixture consisting of saline, epinephrine and lidocaine was instilled ci rcumferentially creating a good halo around the great saphenous vein throughout the planned ablation segment. Catheter position was reconfirmed, and ablation performed with 2 cycles at the first station, then 1 at each station back to the level of the sheath. Ultrasound was performed with findings as above. The sheath was removed and pressure held for hemostasis. A single 4-0 nylon suture was used to close the skin incision site. Next, transverse micro stab incisions were created overlying all of the varicosities in the thigh and lower leg that I had marked preoperatively. Veins were removed by hook phlebectomy and pressure held for hemostasis. 4-0 nylon sutures were used to close all of these incisions. 0.5% bupivacaine was instilled under all the incisions for local anesthesia. Mastisoland Steri-Strips were applied to all of the incision sites. Telfa was applied, and the leg was wrapped from the toes to the proximal thigh with Kerlix roll gauze and Coban wrap. The patient was then awakened, extubated, brought to recovery in stable condition. All sponge needle and instrument counts were reported as correct at the end of the case. I was present scrubbed and participated in the entirety of this operation, along with supervision of Artemio Kat PA-C. VLADISLAV FERNÁNDEZ III, MD 09/29/2023 documented in this encounter Plan of Treatment Not on file documented as of this encounter Procedures Procedure Name Priority Date/Time Associated Diagnosis Comments Phleb Veins - Extrem 20+ (64837) 09/29/2023 7:28 AM EDT Venous insufficiency of both lower extremities Varicose veins of both lower extremities, unspecified whether complicated Endovenous Ablation Incompetent Vein Radiofrequency 1St Vein (34960) 09/29/2023 7:28 AM EDT Venous insufficiency of both lower extremities Varicose veins of both lower extremities, unspecified whether complicated POCT URINE Routine 09/29/2023 6:42 AM EDT documented in this encounter Results * Duplex for DVT, Leg, Unilat (10/04/2023 4:04 PM EDT) VB Text Report Department: Vascular Surgery Lab Patient: [id number] (TYRA HOBSON) CPT: 56814 Referring Physician: JOLENE ROSS MD, VLADISLAV ?? Phone: Indications: s/p RIGHT GSV ablation Findings: RIGHT: The great saphenous vein is ablated to the inferior epigastric vein. Patent common femoral vein with spontaneous, respirophasic Doppler waveforms that respond normally to augmentation maneuvers. The common femoral vein, saphenofemoral junction and femoral vein through the proximal thigh are fully compressible. Interpretation: RIGHT: Successful ablation of the great saphenous vein. No evidence of lower extremity deep venous thrombosis through the proximal thigh. No postop exam for comparison. Electronically Signed by: VIVI BUCKLEY on 2023-10-06 01:11:54 PM [facility] VB Text Report End of Report [facility] 10/04/2023 4:04 PM EDT Vladislav Fernández III, MD VASCULAR ORDERA BLES [facility] * POCT urine (09/29/2023 6:42 AM EDT) POC Urine HCG Negative POC Control Internal Controls Acceptable 09/29/2023 6:42 AM EDT Vladislav Fernández III, MD POINT OF CARE T EST ORDERABLES documented in this encounter Visit Diagnoses Diagnosis Venous insufficiency of both lower extremities Varicose veins of both lower extremities, unspecified whether complicated Varicose veins of both lower extremities with pain Varicose veins of lower extremities with other complications Venous insufficiency of both lower extremities Varicose veins of both lower extremities, unspecified whether complicated documented in this encounter Administered Medications Inactive Administered Medications - up to 3 most recent administrations Medication Order MAR Action Action Date Dose Rate Site acetaminophen (Tylenol) tablet 975 mg 975 mg (rounded from 1,000 mg), Oral, ONCE PRN, 1 dose, Starting on Chanda 09/29/23 at 0909, Until Chanda 09/29/23 at 1000, Pain, Maximum dose of acetaminophen is 4000 mg from all sources in 24 hours. When ordered for pain, acetaminophen should be given even when other ordered pain medications are indicated. , PACU Recovery, Routine Given 09/29/2023 10:00 AM EDT 975 mg BUpivacaine (pf) (Marcaine) (5 mg/mL) 0.5% injection PRN, Starting on Chanda 09/29/23 at 0910, Until Chanda 09/29/23 at 1049, Intra-Operative (Intra-Procedure), Routine Given 09/29/2023 9:10 AM EDT 26 mLs 19- Surgical Site lidocaine-EPINEPHrine (pf) (1% - 1:200,000) injection PRN, Starting on Chanda 09/29/23 at 0911, Until Chanda 09/29/23 at 1049, Intra-Operative (Intra-Procedure), Routine Given 09/29/2023 9:11 AM EDT 25 mLs 19- Surgical Site documented in this encounter Active and Recently Administered Medications Times are shown in EDT. Scheduled Medication Order 09/27/2023 09/28/2023 09/29/2023 ceFAZolin (Ancef) 2 g vial attach to sodium chloride 0.9% 100 mL Mini-Bag Plus (COMPLETED) 2 g, Intravenous, TRUCK FARMER TO O.R., 1 dose, On Chanda 24 at 0645, Administer over 30 Minutes, Redose after 4 hours., Day of Surgery (Day of Procedure), Indication for (Active or Suspected): Prophylaxis 0740 (New Bag - Prov ider: John Paul Oneal CRNA) Continuous Medication Order 09/27/2023 09/28/2023 09/29/2023 lactated ringers infusion (CANCELED) 1,000 mL, at 50 mL/hr, Intravenous, CONTINUOUS, Starting on Chanda 24 at 0700, Until Chanda 09/29/23 at 1050, Day of Surgery (Day of Procedure) 0731 (New Bag - Prov ider: John Paul Oneal CRNA) PRN Medication Order 09/27/2023 09/28/2023 09/29/2023 acetaminophen (Tylenol) tablet 975 mg (COMPLETED) 975 mg (rounded from 1,000 mg), Oral, ONCE PRN, 1 dose, Starting on Chanda 09/29/23 at 0909, Until Chanda 09/29/23 at 1000, Pain, Maximum dose of acetaminophen is 4000 mg from all sources in 24 hours. When ordered for pain, acetaminophen should be given even when other ordered pain medications are indicated. , PACU Recovery, Routine 1000 (Given - Provid er: Rohit Lowry RN) BUpivacaine (pf) (Marcaine) (5 mg/mL) 0.5% injection (CANCELED) PRN, Starting on Chanda 24 at 0910, Until Chanda 424 at 1049, Intra-Operative (Intra-Procedure), Routine 0910 (Given - Provid er: Vladislav Fernández III, MD) lidocaine-EPINEPHrine (pf) (1% - 1:200,000) injection (CANCELED) PRN, Starting on Chanda 24 at 0911, Until Chanda 4/4/24 at 1049, Intra-Operative (Intra-Procedure), Routine 0911 (Given - Provid er: Vladislav Fernández III, MD - Comment: 25ml in 500ml IV saline for tumescent vein solution. 200ml of solution used.) documented in this encounter Care Teams Construction Person Relationship Specialty Start Date End Date Edwar Velasco PA [address] [place] [address] PCP - General Internal Medicine 02/04/23 documented as of this encounter
--- OUTSIDE RECORDS SUMMARY | 2024-03-23 01:10 | XMS_ITS | Encounter Summary ---
[place] [address] Care Team Providers Care Trauma Coordinator Name Role Phone Edwar Velasco Primary Care Provider [phone] Reason for Referral * Diagnostic Test (Routine) - Closed Specialty Diagnoses / Procedures Referred By Av donovan Referred To Contact Diagnoses Venous insufficiency of both lower extremities Varicose veins of both lower extremities, unspecified whether complicated Varicose veins of both lower extremities with pain Procedures Duplex for DVT, Leg, Unilat Jigar Kat PA [facility] [place] [address] [facility] [address] [place] [address] Referral ID Status Reason Start Date Expiration Date V isits Requested Visits Authorized [id number] Closed Specialty Service Requested 09/29/2023 09/28/2024 1 1 Reason for Visit * Auth/Cert (Routine) Specialty [...] INCISIONS (WRVU 6) Vladislav Fernández III, MD [address] [place] [address] [place] [address] [facility] Referral ID Status Reason Start Date Expiration Date Visits Re quested Visits Authorized [id number] 1 1 Encounter Details Date Type Department Care Team (Latest Contact Info) Description 09/29/2023 6:15 AM EDT - 09/29/2023 10:52 AM EDT Hospital Encounter Post Acute [facility] Unit at [facility] [place] [address] Vladislav Fernández III, MD [address] [place] [address] [place] [address] Venous insufficiency of both lower extremities; Varicose veins of both lower extremities, unspecified whether complicated; Varicose veins of both lower extremities with pain Discharge Disposition: Home Social History Tobacco Use Types Packs/Day Years [...] Sign Reading Time Taken Comments Blood Pressure 116/68 09/29/2023 10:30 AM EDT Pulse 65 09/29/2023 9:45 AM EDT Temperature 37.1 ??C (98.8 ??F) 09/29/2023 9:26 AM ED T Respiratory Rate 16 09/29/2023 10:30 AM EDT Oxygen Saturation 97% 09/29/2023 10:30 AM EDT Inhaled Oxygen Concentration - - [...] mailed to you. Please call our office ([phone]) if you do not receive the ultrasound appointment within 2 days or the clinic appointment within 10 days. For any questions or concerns please call [phone] documented in this encounter Medications at Time of Discharge Medication Sig Dispensed Refills Start Date End Date HYDROcodone-acetaminophen ([place]) 5-325 mg tablet Take 1 tablet by [...] and assisted to personal vehicle via wheelchair. Leol patel met all discharge criteria and was discharged [...] is followed by [facility] in this regard. She complains of significant [...] proceed as planned. NI Charles 09/29/2023 Pager: [phone] documented in this encounter Miscellaneous Notes * Op Note - Vladislav Fernández III, MD - 09/29/2023 7:49 AM EDT [facility] Operative Note [facility] [address] [id number] Patient Name: Tyra Hobson : [id number] MR#: [id number] Case Date: 09/29/2023 Case Scheduled Time: 729 Surgeon: Surgeon(s) and Role: * Vladislav Fernández III, MD - Primary * Jigar Kat PA - Physician Security Officer Preoperative diagnosis: Lower extremity varicose veins, venous [...] was met in the preoperative area at [facility] and all relevant consents were signed. In [...] confirmed to be intravenous, and a 7 [place] sheath was placed. The radiofrequency catheter was [...] Diagnosis Comments Phleb Veins - Extrem 20+ ([id number]) 09/29/2023 7:28 AM EDT Venous insufficiency of both lower extremities Varicose veins of both lower extremities, unspecified whether complicated Endovenous Ablation Incompetent Vein Radiofrequency 1St Vein ([id number]) 09/29/2023 7:28 AM EDT Venous insufficiency of both lower extremities Varicose veins of both lower extremities, unspecified whether complicated POCT URINE Routine 09/29/2023 6:42 AM EDT documented in this encounter Results * Duplex for DVT, Leg, Unilat (10/04/2023 4:04 PM EDT) VB Text Report Department: Vascular Surgery Lab Patient: [id number] (TYRA HOBSON) CPT: 63325 Referring Physician: VLADISLAV FERNÁNDEZ III, MD ?? Phone: Indications: s/p RIGHT GSV ablation [...] veins of lower extremities with other complications documented in this encounter Administered Medications Inactive [...] Given 09/29/2023 10:00 AM EDT 975 mg documented in this encounter Active and Recently Administered Medications Times are shown in EDT. Scheduled Medication Order 09/27/2023 09/28/2023 09/29/2023 ceFAZolin (Ancef) 2 g vial attach to sodium chloride 0.9% 100 mL Mini-Bag Plus (COMPLETED) 2 g, Intravenous, ENGINEERING MODEL MAKER TO O.R., 1 dose, On Chanda 09/29/23 at 0645, Administer over 30 Minutes, Redose after 4 hours., Day of Surgery (Day of Procedure), Indication for (Active or Suspected): Prophylaxis 0740 (New Bag - Prov ider: John Paul Oneal CRNA) Continuous Medication Order 09/27/2023 09/28/2023 09/29/2023 lactated ringers infusion (CANCELED) 1,000 mL, at 50 mL/hr, Intravenous, CONTINUOUS, Starting on Chanda 09/29/23 at 0700, Until Chanda 09/29/23 at 1050, [...] 0.5% injection (CANCELED) PRN, Starting on Chanda 09/29/23 at 0910, Until Chanda 424 at 1049, Intra-Operative (Intra-Procedure), Routine 0910 (Given - Provid er: Vladislav Fernández III, MD) lidocaine-EPINEPHrine (pf) (1% - 1:200,000) injection (CANCELED) PRN, Starting on Chanda 09/29/23 at 0911, Until Chanda 09/29/23 at 1049, Intra-Operative (Intra-Procedure), Routine 0911 (Given - Provid er: Vladislav Fernández III, MD - Comment: 25ml in 500ml IV saline for tumescent vein solution. 200ml of solution used.) documented in this encounter Care Teams Trauma Coordinator Relationship Specialty Start Date End Date Edwar Velasco PA [address] [place] [address] PCP - General Internal Medicine 02/04/23 documented as of this encounter
--- OUTSIDE RECORDS SUMMARY | 2024-03-23 01:10 | XMS_ITS | Encounter Summary ---
Author Organization [facility] Address [address] [place] [address] Care Team Providers Care Causticiser Name Role Phone Kelley Jing Drew LEAD ENGINEER Primary Care Provider [phone] Encounter Details Date Type Department Care Team (Late st Contact Info) Description 04/06/2016 Historical Results Only [facility] - [facility] - Main [place] [address] [place], [place] [address] LeoncioJosefina MD [address] [place] [address] [place] [id number] Social History Tobacco Use Types Packs/Day Years Used Date Smoking Tobacco: Never Assessed Sex and Gender Information Value Date Recorded Sex Assigned at Female 06/01/2021 10:49 EST Gender Identity Female 06/01/2021 10:49 EST Sexual Orientation Not on file documented as of this encounter Plan of Treatment Not on file documented as of this encounter Procedures Procedure Name Priority Date/Time Associated Diagnosis Comments PAP TEST Routine 04/06/2016 documented in this encounter Results * PAP TEST (04/06/2016) 04/06/2016 04/07/2016 14: 55 EDT Narrative [facility] - 04/12/2016 15:53 EDT ----- ------- Name: SUSAN HOBSON ?: 72 ?Age/Sex: 48/F ?Unit#: [id number] ? Loc: LAB.THC ? Status: REG REF ?? Reg Date: 04/06/16 ? Pt.Phone Number: ? ----- ------- Specimen: [id number] ?STATUS: SOUT ?Spec Date:04/06/16 ? Physician Copies: ?Josefina Fang MD Tissues: ? Cervical/Endo Pap ?Nancy Corey MD ?? CPT: 39784 ?? Units: ??1 ----- ------- ? CYTOLOGY DIAGNOSIS SPECIMEN ADEQUACY: ?Satisfactory for evaluation. Transformation zone component ABSENT. GENERAL CATEGORIZATION: ?Negative for Intraepithelial Lesion or Malignancy DESCRIPTIVE DIAGNOSIS: ? Negative for Intraepithelial Lesion or Malignancy. ----- ------- ?HPV DNA RESULTS ?? 04/06/16 1347 HPV DNA RESULT ??NEG ? Negative for HPV types 16, 18, 31, 33, 35, 39, 45, 51, 52, ? 56, 58, 59, 66, 68. ? Method: Cervista HPV HR (High Risk) DNA test. ----- ------- ORDER QUERIES: LMP: ? - ? Post ?PREVIOUS ATYPICAL: Y BCP/HRT? ?? Rad Rx? ?? IUD?PAP PLUS HPV?REFLEX TO HR-HPV IF ASCUS ?? REFLEX TO HPV 16/18 IF HPV POS/PAP NEG ?? HPV REGARDLESS?RFLX HPV IF LSIL ?? Signed Rafy Merritt CT(ASCP) 04/12/16 By the signature above, the attending physician certifies that he/she has personally conducted a gross and/or microscopic examination of the described specimens and rendered or confirmed the above diagnosis. Test Performed by [facility], [address] [place] [id number] Predator Control Trapper: Lynne Lopez MD PHD ----- ------- Josefina Fang MD PATHOLOGY ORDERABLES [facility] documented in this encounter Visit Diagnoses Not on filedocumented in this encounter Care Teams Causticiser Relationship Specialty Start Date End Date Jing Benson, LEAD ENGINEER [address] [place], [place] [address] PCP - General 01/05/11 03/31/21 documented as of this encounter
--- OUTSIDE RECORDS SUMMARY | 2024-03-23 01:10 | XMS_ITS | Encounter Summary ---
Author Organization [facility] Address [address] [place] [address] Care Team Providers Care Churn Driller Helper Name Role Phone KelleyJing Drew MEDICAL RECORDS ANALYST Primary Care Provider [phone] Encounter Details Date Type Department Care Team (Late st Contact Info) Description 07/04/2017 Historical Results Only [facility] - [facility] - Main [address] [id number] Jigar Quezada MD [address] [place] [phone] Social History Tobacco Use Types Packs/Day [...] Procedure Name Priority Date/Time Associated Diagnosis Comments BASIC METABOLIC PANEL POCT - [facility] Routine 07/04/2017 13:30 EST LIPID PANEL POC - [facility] Routine 07/04/2017 13:30 EST CBC W/PLT & DIFF,POINT OF CARE - [facility] Routine 07/04/2017 13:30 EST POCT CHOLESTEROL LDL ([facility] Routine 07/04/2017 13:30 EST documented in this encounter Results * (ABNORMAL) LIPID PANEL POC - [facility] (07/04/2017 13:30 EST) Triglyceride 39 0.00 - 150.00 MG/DL 07/05/2017 13:32 [facility] Cholesterol 121 0.00 - 200.00 MG/DL 07/05/2017 13:32 [facility] HDL 64(H) 40.00 - 60.00 MG/DL 07/05/2017 13:32 [facility] 07/04/2017 13:3 0 EST 07/04/2017 13:30 EST Jigar Quezada MD CHEMISTRY & BLOOD GA S ORDERABLES [facility] * (ABNORMAL) POCT CHOLESTEROL LDL ([facility] (07/04/2017 13:30 EST) LDL CHOLESTEROL - [facility] 49(L) 60 - 100 mg/dl 07/05/2017 13:32 [facility] 07/04/2017 13:3 0 EST 07/04/2017 13:30 EST Jigar Quezada MD POINT OF CARE TEST O RDERABLES [facility] * (ABNORMAL) CBC W/PLT & DIFF,POINT OF CARE - [facility] (07/04/2017 13:30 EST) Gran # 3.0 1.4 - 6.5 X10E3/UL 07/05/2017 13:32 [facility] GRAN % - [facility] 55.3 42.2 - 75.2 % 07/05/2017 13:32 [facility] HEMATOCRIT - [facility] 39.7 35.0 - 60.0 % 07/05/2017 13:32 [facility] HEMOGLOBIN - [facility] 13.1 11.0 - 18.0 G/DL 07/05/2017 13:32 [facility] LYMPH # - [facility] 2.1 1.2 - 3.4 X10E3/UL 07/05/2017 13:32 [facility] LYMPH% - [facility] 39.5 20.5 - 51.1 % 07/05/2017 13:32 [facility] MEAN CORPUSCULAR HGB - [facility] 29.4 27.0 - 31.0 PG 07/05/2017 13:32 [facility] MEAN CORPUSCULAR HGB CONC - [facility] 33.0 33.0 - 37.0 G/DL 07/05/2017 13:32 [facility] MEAN CELL VOLUME - [facility] 89.1 80.0 - 99.9 FL 07/05/2017 13:32 [facility] MONO # - CV 0.3 0.1 - 0.6 X10E3/UL 07/05/2017 13:32 [facility] MONO% - [facility] 5.2 1.7 - 9.3 % 07/05/2017 13:32 [facility] MEAN PLATELET VOLUME - [facility] 7.3(L) 7.8 - 11.0 FL 07/05/2017 13:32 [facility] PLATELET COUNT 252 150 - 450 X10E3/UL 07/05/2017 13:32 [facility] RED BLOOD COUNT - [facility] 4.45 4.00 - 6.00 X10E6/UL 07/05/2017 13:32 [facility] RED CELL DISTRI WIDTH - [facility] 12.0 11.6 - 13.7 % 07/05/2017 13:32 [facility] WHITE BLOOD COUNT - [facility] 5.4 4.5 - 10.5 X10E3/UL 07/05/2017 13:32 [facility] 07/04/2017 13:3 0 EST 07/04/2017 13:30 EST Jigar Quezada MD CHEMISTRY & BLOOD GA S ORDERABLES [facility] * BASIC METABOLIC PANEL POCT - [facility] (07/04/2017 13:30 EST) BUN - [facility] 12 7.00 - 20.00 MG/DL 07/05/2017 13:32 [facility] CALCIUM - [facility] 9.2 8.50 - 10.50 MG/DL 07/05/2017 13:32 [facility] Chloride 106 98.00 - 107.00 MMOL/L 07/05/2017 13:32 [facility] CO2 Total 27 22.00 - 30.00 MMOL/L 07/05/2017 13:32 [facility] CREATININE 0.7 0.70 - 1.50 MG/DL 07/05/2017 13:32 [facility] Anion Gap 10 7 - 17 07/05/2017 13:32 [facility] GLUCOSE - [facility] 100 70.00 - 100.00 MG/DL 07/05/2017 13:32 [facility] Potassium 3.9 3.50 - 5.10 MMOL/L 07/05/2017 13:32 [facility] Sodium 143 137.00 - 145.00 MMOL/L 07/05/2017 13:32 [facility] 07/04/2017 13:3 0 EST 07/04/2017 13:30 EST Jigar Quezada MD POINT OF CARE TEST O RDERABLES [facility] documented in this encounter Visit Diagnoses Not on filedocumented in this encounter Care Teams Churn Driller Helper Relationship Specialty Start Date End Date Jing Benson, MEDICAL RECORDS ANALYST [address] [place] [address] PCP - General 01/05/11 03/31/21 documented as of this encounter
--- OUTSIDE RECORDS SUMMARY | 2024-03-23 01:10 | XMS_ITS | Encounter Summary ---
Author Organization [facility] Address [address] [place] [address] Care Team Providers Care Volleyball Assistant Coach Name Role Phone Nancy Corey MD Primary Care Provider [phone] Unknown, Provider Primary Care Provider [phone] Encounter Details Date Type Department Care Team (Late st Contact Info) Description 11/14/2021 Lab Requisition [facility] - [address] [address] Outr Resulting Lab, Provider Social History Tobacco Use Types Packs/Day Years [...] Procedure Name Priority Date/Time Associated Diagnosis Comments ZZCOVID-19 TEST [facility] PCR Today 11/14/2021 14:39 EDT COVID-19 TESTING Routine 11/14/2021 14:3 9 EDT documented in this encounter Results * COVID-19 TEST [facility] PCR (11/14/2021 14:39 EDT) Swab 11/14/2021 14:3 9 EDT 11/15/2021 16:27 EDT Provider Outr Resulting Lab MICROBIOLOGY - GENERAL ORDERABLES [facility] [address] [place] [address] * COVID-19 TESTING (11/14/2021 14:39 EDT) COVID-19 rt-PCR Result Negative Negative 11/16/2021 11:37 EDT [facility] Comment: This test has not been FDA cleared or approved. This test has been authorized by FDA under an EUA for use by authorized laboratories. This test has been authorized only for detection of nucleic acid from 2019-nCoV, not for any other viruses or pathogens. This test is only authorized for the duration of the declaration that circumstances exist justifying the authorization of emergency use of in vitro diagnostic tests for detection and/or diagnosis of 2019-nCoV under section 564(b)(1) of Act, 21 U.S.C ?? 360bbb-3(b) (1), unless the authorization is terminated or revoked sooner. Negative results do not preclude 2019-nCoV infection and should not be used as the sole basis for treatment or other patient management decisions. Negative results must be combined with clinical observations, patient history, and epidemiological information. Testing was performed using the christin SARS-CoV-2 assay ([employer] on the Christin 6800 System Performing Lab Christin [address] [facility] 11/16/2021 11:37 EDT [facility] Swab 11/14/2021 14:3 9 EDT 11/15/2021 16:27 EDT Provider Outr Resulting Lab MICROBIOLOGY - GENERAL ORDERABLES [facility] [address] [place] [address] documented in this encounter Visit Diagnoses Not on filedocumented in this encounter Care Teams Volleyball Assistant Coach Relationship Specialty Start Date End Date Nancy Corey MD [address] [place] [phone] PCP - General Family Medicine - Primary Care 04/01/21 10/24/22 Unknown, Provider, PCP - General 10/25/22 documented as of this encounter
--- OUTSIDE RECORDS SUMMARY | 2024-03-23 01:10 | XMS_ITS | Encounter Summary ---
Author Organization [facility] Address [address] [place] [address] Care Team Providers Care Balance Wheel Screw Hole Tapper Name Role Phone Unknown, Provider Primary Care Provider [phone] Jing Benson NP Primary Care Provider [phone] Encounter Details Date Type Department Care Team (Late st Contact Info) Description 05/20/2009 Historical Results Only [facility] - Main [address] [address] Nkechi Lombardo, [address] [place] [phone] Social History Tobacco Use Types Packs/Day Years [...] Date/Time Associated Diagnosis Comments PAP TEST Routine 05/20/2009 documented in this encounter Results * PAP TEST (05/20/2009) 05/20/2009 05/20/2009 16: 39 EST Narrative [facility] - 05/28/2009 12:55 EST ----- ------- Name: YOLISSUSAN ?: [birth year] ?Age/Sex: 49/F ?Unit#: [id number] ? Loc: AGO ? Status: REG POV ?? Reg Date: 05/20/09 ? Pt.Phone Number: ? ----- ------- Specimen: [id number] ? STATUS: SOUT ?Spec Date:05/20/09 ? Physician Copies: ?Nkechi Lombardo ? Tissues: ? Cervical/Endo Pap ?Kolton Shaver MD CPT: 12636 ?? Units: ??1 ----- ------- ? CYTOLOGY DIAGNOSIS SPECIMEN ADEQUACY: ?Satisfactory for evaluation. Transformation zone component ABSENT. GENERAL CATEGORIZATION: ?Negative for Intraepithelial Lesion or Malignancy DESCRIPTIVE DIAGNOSIS: ?Fungal organisms present morphologically consistent with Anisa species. RECOMMENDATIONS/COMMENTS: ?None. ----- ------- ORDER QUERIES: LMP: 02/17/09- ? Y Post ? N ??PREVIOUS ATYPICAL: Y BCP/HRT? N Rad Rx? N IUD? N ??PAP PLUS HPV? N ??REFLEX TO HR-HPV IF ASCUS ?? REFLEX TO HPV 16/18 IF HPV POS/PAP NEG ?? HPV REGARDLESS?RFLX HPV IF LSIL ?? IF ASCUS DO HPV? Y Signed Naveen Alberts CT(ASCP) 05/28/09 ? By the signature above, the attending physician certifies that he/she has personally conducted a gross and/or microscopic examination of the described specimens and rendered or confirmed the above diagnosis. Test Performed by [facility], [address] [id number] Software Development Leader: Lynne Lopez MD PHD ----- ------- Nkechi Prasad [facility] PATHOLOGY ORDERABLES [facility] documented in this encounter Visit Diagnoses Not on filedocumented in this encounter Care Teams Balance Wheel Screw Hole Tapper Relationship Specialty Start Date End Date Unknown, Provider, PCP - General 10/15/08 01/04/11 Jing Benson, PHYSICIAN PRACTICE MANAGER [address] [place] [address] PCP - General 01/05/11 03/31/21 documented as of this encounter
--- OUTSIDE RECORDS SUMMARY | 2024-03-23 01:10 | XMS_ITS | Encounter Summary ---
[place] [address] Care Team Providers Care Brush Trimming Machine Setter Name Role Phone Edwar Velasco Primary Care Provider [phone] Reason for Visit * Auth/Cert (Routine) Specialty [...] EXTREMITY MORE 20 INCISIONS (WRVU 6) Vladislav Doyle III, MD [address] [place] [address] [place] [address] [facility] Referral ID Status Reason Start Date Expiration Date Visits Re quested Visits Authorized [id number] 1 1 Encounter Details Date Type Department Care Team ([facility] st Contact Info) Description 09/29/2023 7:31 AM EDT Anesthesia Event Operating Room [address] [place] [address] John Paul Oneal, INDEX EDITOR [address] [place] [address] Anesthesia Record Procedure Summary Procedure Name Responsible Anesthesiologist Anesthesia Start Time Anesthesia Stop Time ENDOVENOUS ABLATION THERAPY OF INCOMPETENT VEIN, EXTREMITY, FIRST VEIN (WRVU 5.3) (Right: Leg) John Paul Oneal, INDEX EDITOR 09/29/23 0731 09/29/23 0925 Events Date Time Event Comment 09/29/2023 0731 AN Verify 0731 Start 0731 An Start Data 0734 An Induction 0736 An Intubation 0737 Anesthesia Ready 924 Extubation/LMA Out 924 an stop data 924 Recovery or ICU Handoff Rhea ent care was transferred to the destination unit staff after review of the patient's medical history, current anesthetic/surgical status and plan, according to the Provider Handoff Checklist. 924 Stop 1150 Meds Name Total Midazolam 3 mg fentaNYL 200 mcg IV Lidocaine 50 mg Propofol 200 mg Ondansetron 4 mg Dexamethasone 10 mg ceFAZolin (Ancef) 2 g vial a ttach to sodium chloride 0.9% 100 mL Mini-Bag Plus 2 g lactated ringers infusion 0 mL * Agents Name O2 * Blood No blood administrations on file. Lines, Drains, and Airways Type Details Placement Removal Incision 09/29/23; 0749; Righ t, anterior, lower; leg; Stab incisions x40 09/29/23 0749 by Maylin Calderon RN PIV 09/29/23; 0646; [id number] catheter system; 20 gauge; median cubital vein (antecubital fossa), left; Anatomical Landmarks; US Not Used; DENZEL LEAL; distraction, tolerated well, appears comfortable, age-appropriate response; 0; no longer indicated, removed per policy/procedure, catheter/device intact; 09/29/23; 1039 09/29/23 0646 by Frances Powell RN 09/29/23 103 by Rohit Eason, RN Supraglottic Mask Ventilation: Kar spain (1); LMA Type: iGel; LMA Size: 3; Inserted by: MISSY Oneal; Removal Date: 09/29/23; Removal Time: 92409/29/23 0736 by John Paul Oneal CRNA 09/29/23 09 by John Paul Oneal CRNA documented in this encounter Social History Tobacco Use Types Packs/Day Years Used Date Smoking Tobacco: Never Smokeless Tobacco: Never Alcohol Use Standard Drinks/Week Comments Yes 0 (1 standard drink = 0.6 oz pur e alcohol) socially DH IPV Inpatient Questions Answer Date Recorded Does Anyone Try to Keep You From Having Contact with Others or Doing Things Outside Your Home? no 09/29/2023 Feels Threatened by Someone no 0 09/2023 Feels Unsafe at Home or Work/School no 09/29/2023 Physical Signs of Abuse Present no 09/29/2023 Sex and Gender Information Value Date Recorded Sex Assigned at Not on file Gender Identity Not on file Sexual Orientation Not on file documented as of this encounter OR Notes * Anesthesia Postprocedure Evaluation - John Paul Oneal CRNA - 09/29/2023 12:17 PM EDT Department of Anesthesiology Post-procedure Note Patient: Susan Hobson Procedure Summary Date: 09/29/23 Room / Location: [facility] OR MAIN OR Anesthesia Start: 730 Anesthesia Stop: 924 Procedures: ENDOVENOUS ABLATION THERAPY OF INCOMPETENT VEIN, EXTREMITY, FIRST VEIN (WRVU 5.3) (Right: Leg) STAB PHLEBECTOMY DINO VEINS 1 EXTREMITY MORE 20 INCISIONS (WRVU 6) (Right) Diagnosis: Venous insufficiency of both lower extremities Varicose veins of both lower extremities, unspecified whether complicated (Lower extremity varicose veins, venous insufficiency) Surgeons: Vladislav Doyle III, MD Responsible Provider: John Paul Oneal CRNA Anesthesia Type: general ASA Status: 2 All Anesthesia Providers: MISSY Independent: John Paul Oneal CRNA Vitals Value Taken Time BP 116/68 09/29/23 1030 Temp 37.1 ??C (98.8 ??F) 09/29/23 0926 Pulse 65 09/29/23 0945 Resp 16 09/29/23 1030 SpO2 97 % 09/29/23 1030 Pain Level 2 09/29/23 1030 Patient Location: PACU/[facility] Level of Consciousness: Awake and Alert Pain Management: Satisfactory Analgesia PONV: None Cardiovascular Status: At Baseline and Hemodynamically Stable Respiratory Status: At Baseline and Room Air Postoperative Fluid Status: Intravascular EUvolemia Possible Anesthetic Complications: NONE apparent at time of evaluation Final Primary Anesthesia Type: General (The anesthetic type performed was the same as planned.) Comments: John Paul Oneal CRNA * Anesthesia Preprocedure Evaluation - John Paul Oneal CRNA - 09/29/2023 7:05 AM EDT Pre-Anesthesia Evaluation for: Susan Hobson a 53 y.o. female. Procedure(s): ENDOVENOUS ABLATION THERAPY OF INCOMPETENT VEIN, EXTREMITY, FIRST VEIN (WRVU 5.3) STAB PHLEBECTOMY DINO VEINS 1 EXTREMITY MORE 20 INCISIONS (WRVU 6) Patient Active Problem List Diagnosis Date Noted Varicose veins of both lower extremities with pain 04/20/2023 Venous insufficiency of both lower extremities 04/20/2023 Neoplasm of uncertain behavior of skin 01/05/2011 No past medical history on file. Past Surgical History: Procedure Laterality Date COLON SURGERY Social History Tobacco Use Smoking status: Never Smokeless tobacco: Never Substance Use Topics Alcohol use: Yes Comment: socially Social History Substance and Sexual Activity Drug Use Yes Types: Marijuana Comment: Rare No Known Allergies Medications: MAR and/or home medications have been reviewed. Physical Exam: Preprocedure Vitals Current as of 09/29/23 0731 BP: 122/74 Pulse: 56 Resp: 16 SpO2: 99 Temp: 36 ??C (96.8 ??F) Height: 168.9 cm (5' 6.5) (09/29/23) Weight: 64.9 kg (143 lb) (09/29/23) BMI: 22.73 IBW: 60.4 kg (133 lb 4 oz) Last edited 09/29/23 0639 by JT Airway Assessment: Mallampati: II TM distance: <3 FB Neck ROM: full Cardiovascular Assessment: Rhythm: regular Rate: normal Pulmonary Assessment: breath sounds clear to auscultation pulmonary exam normal Dental Assessment: - normal exam Misc Assessment: Patient is wearing No contact(s). IV access: Peripheral line Last Filed Perioperative Cognitive Screening None Anesthesia Plan: ASA 2 general, with a(n) intravenous induction Region - Other Informed Consent: Anesthetic plan and risks discussed with patient. Anesthesia Screening documented in this encounter Plan of Treatment Not on file documented as of this encounter Visit Diagnoses Not on filedocumented in this encounter Administered Medications Inactive Administered Medications - up to 3 most recent administrations Medication Order MAR Action Action Date Dose Rate Site ceFAZolin (Ancef) 2 g vial attach to sodium chloride 0.9% 100 mL Mini-Bag Plus 2 g, Intravenous, AUTOMOTIVE VEHICLE INSPECTOR TO O.R., 1 dose, On Chanda 09/29/23 at 0645, Administer over 30 Minutes, Redose after 4 hours., Day of Surgery (Day of Procedure), Indication for (Active or Suspected): Prophylaxis New Bag 09/29/2023 7:40 AM EDT 2 g dexAMETHasone (Decadron) injection Intravenous, PRN, Starting on Chanda 09/29/23 at 0740, Until Chanda 09/29/23 at 0925, Anesthesia Intra-op, Routine Given 09/29/2023 7:40 AM EDT 10 mg fentaNYL (pf) (50 mcg/mL) multi-dose injection Intravenous, PRN, Starting on Chanda 09/29/23 at 0740, Until Chanda 09/29/23 at 0925, Anesthesia Intra-op, Routine Given 09/29/2023 8:38 AM EDT 100 mcg Given 09/29/2023 8:20 AM EDT 50 mcg Given 09/29/2023 7:40 AM EDT 50 mcg lactated ringers infusion 1,000 mL, at 50 mL/hr, Intravenous, CONTINUOUS, Starting on Chanda 09/29/23 at 0700, Until Chanda 09/29/23 at 1050, Day of Surgery (Day of Procedure) New Bag 09/29/2023 7:31 AM EDT lidocaine (pf) (Xylocaine) (20 mg/mL) 2% injection syringe Intravenous, PRN, Starting on Chanda 09/29/23 at 0734, Until Chanda 09/29/23 at 0925, Anesthesia Intra-op, Routine Given 09/29/2023 7:34 AM EDT 50 mg midazolam (pf) (Versed) (1 mg/mL) multi-dose injection Intravenous, PRN, Starting on Chanda 09/29/23 at 0731, Until Chanda 09/29/23 at 0925, Anesthesia Intra-op, Routine Given 09/29/2023 7:31 AM EDT 3 mg ondansetron (pf) (Zofran) (2 mg/mL) injection Intravenous, PRN, Starting on Chanda 09/29/23 at 0740, Until Chanda 09/29/23 at 0925, Anesthesia Intra-op, Routine Given 09/29/2023 7:40 AM EDT 4 mg propofoL (Diprivan) 10 mg/mL bolus injection (Anesthesia) Intravenous, PRN, Starting on Chanda 09/29/23 at 0734, Until Chanda 09/29/23 at 0925, Anesthesia Intra-op Given 09/29/2023 7:34 AM EDT 200 mg documented in this encounter Care Teams Brush Trimming Machine Setter Relationship Specialty Start Date End Date Edwar Velasco PA [address] [place] [address] PCP - General Internal Medicine 02/04/23 documented as of this encounter
--- OUTSIDE RECORDS SUMMARY | 2024-03-23 01:10 | XMS_ITS | Encounter Summary ---
Author Organization [facility] Address [address] [place] [address] Care Team Providers Care Textile Colorist Formulator Name Role Phone Kelley Jing Drew RESEARCH CHEMIST Primary Care Provider [phone] Encounter Details Date Type Department Care Team (Late st Contact Info) Description 01/06/2019 Historical Results Only [facility] Lab - Main [address] [id number] Unknown, Provider, Social History Tobacco Use Types Packs/Day Years Used Date Smoking Tobacco: Never Assessed Sex and Gender Information Value Date Recorded Sex Assigned at Female 06/01/2021 10:49 EST Gender Identity Female 06/01/2021 10:49 EST Sexual Orientation Not on file documented as of this encounter Plan of Treatment Not on file documented as of this encounter Procedures Procedure Name Priority Date/Time Associated Diagnosis Comments QUANTIFERON TB GOLD PLUS Routine 01/06/2019 11:48 EDT MEASLES IGG AB Routine 01/06/2019 11:48 EDT VARICELLA IGG ANTIBODY Routine 01/06/2019 11:48 EDT MUMPS ANTIBODY IGG Routine 01/06/2019 11 :48 EDT RUBELLA IGG ANTIBODY Routine 01/06/2019 11:47 EDT documented in this encounter Results * VARICELLA IGG ANTIBODY (01/06/2019 11:48 EDT) Varicella IgG Ab Positive Negative 01/10/2019 23:25 EDT [facility] Comment:Presumed immune to V aricella infection. 01/06/2019 11:4 8 EDT 01/06/2019 11:48 EDT [facility] - 01/10/2019 23:25 EDT Does PT Have a Latex Allergy? NO Provider Unknown MD IMMUNOLOGY AND SEROL OGY ORDERABLES Performing Organization Address City/[facility]/ZIP Co de Phone Number [facility] * MEASLES IGG AB (01/06/2019 11:48 EDT) RUBEOLA IGG ANTIBODY - [facility] Positive Negative 01/10/2019 23:25 EDT [facility] Comment:Presumed immune to M easles infection. 01/06/2019 11:4 8 EDT 01/06/2019 11:48 EDT [facility] - 01/10/2019 23:25 EDT Does PT Have a Latex Allergy? NO Provider Unknown MD IMMUNOLOGY AND SEROL OGY ORDERABLES Performing Organization Address [facility] [[email or web address]] Co de Phone Number [facility] * MUMPS ANTIBODY IGG (01/06/2019 11:48 EDT) Mumps Ab, IgG, S Positive Negative 01/10/2019 23:25 EDT [facility] Comment:Presumed immune to M umps infection. 01/06/2019 11:4 8 EDT 01/06/2019 11:48 EDT [facility] - 01/10/2019 23:25 EDT Does PT Have a Latex Allergy? NO Provider Unknown MD IMMUNOLOGY AND SEROL OGY ORDERABLES Performing Organization Address City/[facility]/ZIP Co de Phone Number [facility] * QUANTIFERON TB GOLD PLUS (01/06/2019 11:48 EDT) Quantiferon Interpretation Negative NEGAT 01/08/2019 13:36 EDT [facility] Comment: Reference Range: Negative No interferon-gamma response to M. tuberculosis antigens was detected. Infection with M. tuberculosis is unlikely. A single negative result does not exclude infection with M. tuberculosis. In patients at high risk for M. tuberculosis infection, a second test should be considered in accordance with the 2017 ATS/IDSA/CDC Clinical Practive Guidelines for Diagnosis of Tuberculosis in Adults and Children [Michelle MAIER et. al. Clin. Infect. Dis. 2017:64(2):111-115]. Results were obtained with the Qiagen QuantiFERON-TB Gold Plus TORY. TB1 Ag minus Nil 0.01 () IU/mL [facility]/09/20 19 [facility] Ag minus Nil 0.00 () IU/mL 01/09/20 13:36 T [facility] Comment: Test performed [place] [address] 01/06/2019 11:4 8 EDT 01/06/2019 11:48 EDT [facility] - 01/08/2019 13:36 EDT Does PT Have a Latex Allergy? NO Provider Unknown CHEMISTRY & BLOOD GA S ORDERABLES Performing Organization Address City/[facility]/ZIP Co de Phone Number [facility] * RUBELLA IGG ANTIBODY (01/06/2019 11:47 EDT) RUBELLA IGG ANTIBODY - [facility] Positive 01/06/2019 13:33 EDT [facility] Comment: Expected value: Positive The presence of Rubella IgG suggest immunity against rubella 01/06/2019 11:4 7 EDT 01/06/2019 11:47 EDT [facility] - 01/06/2019 13:33 EDT Does PT Have a Latex Allergy? NO Provider Unknown CHEMISTRY & BLOOD GA S ORDERABLES [facility] documented in this encounter Visit Diagnoses Not on filedocumented in this encounter Care Teams Textile Colorist Formulator Relationship Specialty Start Date End Date Jing Benson, RESEARCH CHEMIST [address] [place] [address] PCP - General 01/05/11 03/31/21 documented as of this encounter
--- OUTSIDE RECORDS SUMMARY | 2024-03-23 01:10 | XMS_ITS | Encounter Summary ---
Author Organization [facility] Address [address] [place] [address] Care Team Providers Care Rodding Machine Tender Name Role Phone Tremayne Bensoni Drew VENEER GRADER Primary Care Provider [phone] Encounter Details Date Type Department Care Team (Late st Contact Info) Description 01/25/2011 Results Only [facility] Plastic, Reconstructive & Cosmetic Surgery - [address], [address] [place] [address] Leslee Andrade MD [address] [facility] [address] [place] [address] Social History Tobacco Use Types Packs/Day Years Used Date Smoking Tobacco: Never Assessed Sex and Gender Information Value Date Recorded Sex Assigned at Female 06/01/2021 10:49 EST Gender Identity Female 06/01/2021 10:49 EST Sexual Orientation Not on file documented as of this encounter Plan of Treatment Not on file documented as of this encounter Procedures Procedure Name Priority Date/Time Associated Diagnosis Comments SURGICAL PATHOLOGY Routine 01/25/2011 0:00 EDT documented in this encounter Results * SURGICAL PATHOLOGY (01/25/2011 0:00 EDT) Pathology Report: SURGICAL PATHOLOGY REPORT ? Reports generated via electronic interface contain original data; ? however they are lacking the format of the original report. ? Caution should be taken when reading/interpreti ng unformatted reports. ? Name: ? FAHERTY, SUSAN W ? Accession #: ? [id number] ? : ? 1970 (Age: 40) ??F ? Collect Date: ? 01/25/2011 ? Location: ? PLR ? Receive Date: ? 01/25/2011 ? Provider: LESLEE R YUNI MD ? Copy to: JING WOHLBERG VENEER GRADER ? Final Pathologic Diagnosis: ? Skin of shoulder, left posterior, excision: ? 1. ?Epidermal reparative change and dermal scar. See comment. ? 2. ? No melanocytic proliferation identified. ? Comment: ? The excision specimen is predominated by scar formation with associated ? reparative changes. There is no evidence of a melanocytic proliferation. ??Review of our clinical records does not reveal a diagnostic biopsy nor review of a ? biopsy from this site. (Dr. Walters)/mpl ? Document reviewed and electronically signed by: ? GRETTA WALTERS MD ? Report ??Date: 01/27/2011 16:36 ? By the signature above, the attending physician certifies that he/she has ? personally conducted a gross and/or microscopic examination of the described ? specimens and rendered or confirmed the above diagnosis. ? Specimen(s) Received: ? Left posterior shoulder, suture is superior ? Clinical History: ? Clinical diagnosis code: 238.2 ? Gross Description: ? Received in formalin labelled Faherty, Susan and left posterior ? shoulder is an oriented ellipse of light black skin and subcutis with a suture ?? designating the superior tip as per the Surgical Pathology requisition slip. The specimen measures as follows: ??superior tip ??to inferior tip ??1.8 cm, lateral to medial ??0.9 cm, and is excised to depth of 0.5 cm. ??The skin surface has what ?? appears to be a well-healed scarred area with an absence of skin markings ? measuring 0.6 cm in diameter which is located centrally. ??The medial half of the specimen is inked blue and the lateral half of the specimen is inked black. ??The specimen is serially sectioned from superior tip to inferior tip, and is ? submitted entirely as follows: ? BLOCK BROWN ? A1 ?Superior tip, reverse en face ? A2-A4 ?Central sections ? A5 ?Inferior tip, reverse en face ? (J.D. Tessitore)/mms ? End of Report ? ODAL[facility] BARROS 01/25/2011 01/25/2011 8:3 8 EDT Leslee Andrade MD PATHOLOGY ORDERABLES Performing Organization Address City/State/[facility] Co de Phone Number ODAL[facility] BARROS [address] [place] [address] documented in this encounter Visit Diagnoses Not on filedocumented in this encounter Care Teams Rodding Machine Tender Relationship Specialty Start Date End Date Jing Benson NP [address] [place] [address] PCP - General 01/05/11 03/31/21 documented as of this encounter
--- OUTSIDE RECORDS SUMMARY | 2024-03-23 01:10 | XMS_ITS | Encounter Summary ---
Author Organization [facility] Address [address] [place] [address] Care Team Providers Care Pershing Missile Crewmember Name Role Phone Jing Benson CLOTH COLORER Primary Care Provider [phone] Encounter Details Date Type Department Care Team (Late st Contact Info) Description 04/05/2012 Results Only Imaging [facility] [phone] Jing Benson, CLOTH COLORER [address] [place], [place] [address] Social History Tobacco Use Types Packs/Day Years [...] Priority Date/Time Associated Diagnosis Comments MA MAMMO SCREENING DIGITAL 05/08/2012 13:36 EST documented in this encounter Results * MA MAMMO SCREENING DIGITAL (05/08/2012 13:36 EST) Anatomical Region Laterality Modality Other 05/08/2012 13:3 6 EST 05/09/2012 9:11 EST Narrative 05/09/2012 9:11 EST This is the patient's baseline exam. Right Breast Findings: (Routine digital views with CAD) There are scattered fibroglandular densities (25% - 50% fibroglandular). An area of asymmetry is present on the CC laterally. Left Breast Findings: (Routine digital views with CAD) There are scattered fibroglandular densities (25% - 50% fibroglandular). No significant masses, calcifications or other abnormalities are seen. IMPRESSION: RIGHT BREAST: Asymmetry. Additional projections are recommended at this time in the craniocaudal projection with 2D and 3D projections. ?? LEFT BREAST: Negative, no evidence of malignancy. Normal interval follow-up is recommended in 12 months. OVERALL ASSESSMENT - CATEGORY 0 - INCOMPLETE: NEED ADDITIONAL IMAGING EVALUATION END OF IMPRESSION These results will be communicated to your patient via a lay letter from Radiology. If any additional imaging is needed we will contact your patient directly. I have personally reviewed the images and the above interpretation and agree with the findings. Procedure Note Medina Robledo MD - 05/09/2012 This is the patient's baseline exam. Right Breast Findings: (Routine digital views with CAD) There are scattered fibroglandular densities (25% - 50% fibroglandular). An area of asymmetry is present on the CC laterally. Left Breast Findings: (Routine digital views with CAD) There are scattered fibroglandular densities (25% - 50% fibroglandular). No significant masses, calcifications or other abnormalities are seen. IMPRESSION: RIGHT BREAST: Asymmetry. Additional projections are recommended at this time in the craniocaudal projection with 2D and 3D projections. LEFT BREAST: Negative, no evidence of malignancy. Normal interval follow-up is recommended in 12 months. OVERALL ASSESSMENT - CATEGORY 0 - INCOMPLETE: NEED ADDITIONAL IMAGING EVALUATION END OF IMPRESSION These results will be communicated to your patient via a lay letter from Radiology. If any additional imaging is needed we will contact your patient directly. I have personally reviewed the images and the above interpretation and agree with the findings. Jing Benson NP IMG MAMMOGRAPHY FRANCISCO J SALDAÑA documented in this encounter Visit Diagnoses Not on filedocumented in this encounter Care Teams Pershing Missile Crewmember Relationship Specialty Start Date End Date Jing Benson, MAYKEL [address] [place] [address] PCP - General 01/05/11 03/31/21 documented as of this encounter
--- OUTSIDE RECORDS SUMMARY | 2024-03-23 01:10 | XMS_ITS | Encounter Summary ---
Author Organization [facility] [place] [address] Care Team Providers Care Biofuels Product Development Manager Name Role Phone Edwar Velasco Primary Care Provider [phone] Encounter Details Date Type Department Care Team (Late st Contact Info) Description 04/25/2023 Orders Only Vascular Surgery at [facility] [place] [address] Yasmani Rain RN Venous insufficiency of both lower extremities; Varicose veins of both lower extremities, unspecified whether complicated Social History Tobacco Use Types Packs/Day Years Used Date Smoking Tobacco: Never Smokeless Tobacco: Never Sex and Gender Information Value Date Recorded Sex Assigned at Not on file Gender Identity Not on file Sexual Orientation Not on file documented as of this encounter Plan of Treatment Scheduled Orders Name Type Priority Associated Diagnoses Orde r Schedule SURGICAL CASE REQUEST: ENDOVENOUS ABLATION THERAPY OF INCOMPETENT VEIN, EXTREMITY, FIRST VEIN (WRVU 5.3), STAB PHLEBECTOMY DINO VEINS 1 EXTREMITY MORE 20 INCISIONS (WRVU 6) Procedures Routine Venous insufficiency of both lower extremities Varicose veins of both lower extremities, unspecified whether complicated One Time for 1 Occurrences starting 04/25/2023 until 04/25/2023 documented as of this encounter Visit Diagnoses Diagnosis Venous insufficiency of both lower extremities Varicose veins of both lower extremities, unspecified whether complicated documented in this encounter Care Teams Biofuels Product Development Manager Relationship Specialty Start Date End Date Edwar Velasco PA [address] [place] [address] PCP - General Internal Medicine 02/04/23 documented as of this encounter
--- OUTSIDE RECORDS SUMMARY | 2024-03-23 01:10 | XMS_ITS | Encounter Summary ---
Author Organization [facility] Address [address] [place] [address] Care Team Providers Care Supply Room Clerk Name Role Phone Unknown, Provider Primary Care Provider [phone] Encounter Details Date Type Department Care Team (Late st Contact Info) Description 02/20/2007 Results Only [facility] - Maple conversion [address] [place] [address] Stephanie Dove, [address], [address] [place] [address] Social History Tobacco Use Types Packs/Day Years [...] Associated Diagnosis Comments QUANT BETA HCG, Routine 02/20/2007 12:15 EDT SURGICAL PATHOLOGY Routine 02/20/2007 0:00 EDT documented in this encounter Results * (ABNORMAL) HCG (02/20/2007 12:15 EDT) HCG 56(H) <4 mIU/ml [facility] Comment: Reference Range: Positive = >10 Borderline = 4-10 recommend repeat. Negative = <4 02/20/2007 12:1 5 EDT 02/20/2007 20:43 EDT Stephanie Pitt SheriJanet DO CHEMISTRY & BLOOD GAS ORDERABLES [facility] [address] [place] [address] * SURGICAL PATHOLOGY (02/20/2007 0:00 EDT) Pathology Report: SURGICAL PATHOLOGY REPORT Reports generated via electronic interface contain original data; however they are lacking the format of the original report. Caution should be taken when reading/interpreti ng unformatted reports. Name: ? YOLIS, TYRA ? Accession #: ? [id number] ? : ? 1970 (Age: 36) ??F ? Collect Date: ? 02/20/2007 ? Location: ? [facility] ? Receive Date: ? 02/21/2007 ? Provider: STEPHANIE CORLEY DO Copy to: ? Final Pathologic Diagnosis: ? Tissue submitted as material extracted from cervical os: 1. ??Decidualized endometrium with hemorrhage and degenerative changes. 2. ??No chorionic villi seen. Document reviewed and electronically signed by: Tico Scott [facility] Report ??Date: 02/23/2007 16:05 By the signature above, the attending physician certifies that he/she has personally conducted a gross and/or microscopic examination of the described specimens and rendered or confirmed the above diagnosis. Specimen(s) Received: ? Pelvic exam performed ??material extracted from cervical os Clinical History: ? +UCG ??last week; began bleeding heavily x4d; LMP: ?12/30/06; likely products of conception vs decidua; clinical diagnosis code: ??634.0 Gross Description: ? Received in formalin labelled Faherty and cervix/products of conception is a 2.2 x 1.2 x 0.4 cm portion of black-red membranous soft tissue. Discrete villous tissue is not identified. Submitted in toto in one cassette. (George Yancey)/[email or web address] End of Report [facility] 02/20/2007 02/21/2007 8:2 6 EDT Stephanie Dove DO PATHOLOGY ORDERABL ES [facility] [address] [place] [address] documented in this encounter Visit Diagnoses Not on filedocumented in this encounter Care Teams Supply Room Clerk Relationship Specialty Start Date End Date Unknown, Provider, PCP - General 10/15/08 01/04/11 documented as of this encounter
--- OUTSIDE RECORDS SUMMARY | 2024-03-23 01:10 | XMS_ITS | Encounter Summary ---
Author Organization [facility] Address [address] [place] [address] Care Team Providers Care Violent Crimes Detective Name Role Phone Jing Benson NP Primary Care Provider [phone] Reason for Referral * Vascular Lab (Routine) - New Request Specialty Diagnoses / Procedures Referred By Av donovan Referred To Contact Diagnoses Varicose veins of lower extremity Procedures VL VENOUS INSUFFICIENCY (VARICOSE VEINS) LOLY Damien Black MD [address] [place] [address] Referral ID Status Reason Start Date Expiration Date V isits Requested Visits Authorized [id number] New Request 08/22/2017 1 1 Reason for Visit * Reason Onset Date Comments Varicose Veins 08/18/2017 Bilateral LE tasha icose veins Encounter Details Date Type Department Care Team (Late st Contact Info) Description 08/18/2017 Orders Only [facility] Vascular Surgery - Main [place] [address] [place] [address] Damien Black MD Varicose veins of lower extremity (Primary Dx) Social History Tobacco Use Types Packs/Day Years Used Date Smoking Tobacco: Never Assessed Sex and Gender Information Value Date Recorded Sex Assigned at Female 06/01/2021 10:49 EST Gender Identity Female 06/01/2021 10:49 EST Sexual Orientation Not on file documented as of this encounter Plan of Treatment Pending Results Name Type Priority Associated Diagnoses Date /Time VL VENOUS INSUFFICIENCY (VARICOSE VEINS) LOLY Imaging Routine Varicose veins of lower extremity 02/09/2018 12:30 EDT documented as of this encounter Visit Diagnoses Diagnosis Varicose veins of lower extremity- Primary Asymptomatic varicose veins documented in this encounter Care Teams Violent Crimes Detective Relationship Specialty Start Date End Date Jing Benson NP [address] [place] [address] PCP - General 01/05/11 03/31/21 documented as of this encounter
--- OUTSIDE RECORDS SUMMARY | 2024-03-23 01:10 | XMS_ITS | Encounter Summary ---
Author Organization [facility] Address [facility] [place] [address] Care Team Providers Care Electronic Assembler Group Leader Name Role Phone Edwar Velsaco Primary Care Provider [phone] Reason for Visit * Diagnostic Test (Routine) - Closed Specialty Diagnoses / Procedures Referred By Contac t Referred To Contact Diagnoses Venous insufficiency of both lower extremities Varicose veins of both lower extremities, unspecified whether complicated Varicose veins of both lower extremities with pain Procedures Duplex for DVT, Leg, Unilat Jigar Kat PA [facility] [place] [address] [facility] Vascular Lab [address] [place] [address] Referral ID Status Reason Start Date Expiration Date V isits Requested Visits Authorized [id number] Closed Specialty Service Requested 09/29/2023 09/28/2024 1 1 Encounter Details Date Type Department Care Team (Late st Contact Info) Description 10/04/2023 4:00 PM EDT Tech Visit [place] [address] Michael Goldman, RVT Venous insufficiency of both lower extremities; Varicose veins of both lower extremities, unspecified whether complicated; Varicose veins of both lower extremities with pain Social History Tobacco Use Types Packs/Day Years [...] Procedure Name Priority Date/Time Associated Diagnosis Comments DUPLEX FOR DVT, LEG, UNILAT Routine 10/04/2023 4:04 PM EDT Venous insufficiency of both lower extremities Varicose veins of both lower extremities, unspecified whether complicated Varicose veins of both lower extremities with pain documented in this encounter Results * Duplex for DVT, Leg, Unilat (10/04/2023 4:04 PM EDT) VB Text Report Department: Vascular Surgery Lab Patient: [id number] (SUSAN LAGOS) CPT: 02847 Referring Physician: VLADISLAV DOYLE III, MD ?? Phone: Indications: s/p RIGHT [...] Report VASCUBASE 10/04/2023 4:04 PM EDT Vladislav Doyle III, MD VASCULAR ORDERA BLES VASCUBASE documented in this encounter Visit Diagnoses Diagnosis Venous insufficiency of both lower extremities Varicose veins of both lower extremities, unspecified whether complicated Varicose veins of both lower extremities with pain Varicose veins of lower extremities with other complications documented in this encounter Care Teams Electronic Assembler Group Leader Relationship Specialty Start Date End Date Edwar Velasco PA [address] [place] [address] PCP - General Internal Medicine 02/04/23 documented as of this encounter
--- OUTSIDE RECORDS SUMMARY | 2024-03-23 01:10 | XMS_ITS | Encounter Summary ---
Author Organization [facility] Address [address] [place] [address] Care Team Providers Care Vacuum Kettle Cook Name Role Phone Unknown, Provider Primary Care Provider [phone] Jing Benson PILOT BOAT OPERATOR Primary Care Provider [phone] Nancy Corey MD Primary Care Provider [phone] Unknown, Provider Primary Care Provider [phone] Encounter Details Date Type Department Care Team (Late st Contact Info) Description 01/18/2008 Before PRISM Converted Visit (Maple) [facility] - Maple conversion [address] [place] [address] Anya Sawyer, [address] [place] [phone] Social History Tobacco Use Types Packs/Day Years Used Date Smoking Tobacco: Never Assessed Sex and Gender Information Value Date Recorded Sex Assigned at Female 06/01/2021 10:49 EST Gender Identity Female 06/01/2021 10:49 EST Sexual Orientation Not on file documented as of this encounter Plan of Treatment Not on file documented as of this encounter Procedures Procedure Name Priority Date/Time Associated Diagnosis Comments US PREG GT 14 [id number] [id number] 01/18/2008 11:21 EDT documented in this encounter Results * US PREG GT 14 WKS [id number] (01/18/2008 11:21 EDT) Anatomical Region Laterality Modality Other 01/18/2008 11:2 1 EDT Narrative 12/08/2008 13:59 EDT WEST This report has been dictated at [facility]. ??If you would like a copy of this report, please call . Procedure Note Slava Irizarry, DO - 12/08/2008 WEST This report has been dictated at [facility]. If you would like a copy of this report, please call . Anya Sawyer CNM [facility] US ORDERABLES documented in this encounter Visit Diagnoses Not on filedocumented in this encounter Care Teams Vacuum Kettle Cook Relationship Specialty Start Date End Date Unknown, Provider, PCP - General 10/15/08 01/04/11 Jing Benson NP [address] [place] [address] PCP - General 01/05/11 03/31/21 Nancy Corey MD [address] [place] [phone] PCP - General Family Medicine - Primary Care 04/01/21 10/24/22 Unknown, Provider, PCP - General 10/25/22 documented as of this encounter
--- OUTSIDE RECORDS SUMMARY | 2024-03-23 01:10 | XMS_ITS | Encounter Summary ---
Author Organization [facility] Address [address] [place] [address] Care Team Providers Care Patient Carrier Name Role Phone Unknown, Provider Primary Care Provider [phone] Encounter Details Date Type Department Care Team (Late st Contact Info) Description 11/03/2022 Lab Requisition [facility] - Main [place] [address] [place], [place] [address] Dimitri Yepez MD [address] [place] [address] Encounter for screening for malignant neoplasm of colon Social History Tobacco Use Types Packs/Day Years [...] Priority Date/Time Associated Diagnosis Comments SURGICAL PATHOLOGY Today 11/02/2022 8:00 EDT Encounter for screening for malignant neoplasm of colon documented in this encounter Results * SURGICAL PATHOLOGY (11/02/2022 8:00 EDT) Note to Patient The following pathology results have been interpreted by your pathologist and may be available to you before your health provider has had the opportunity to review them. Please allow time for your provider to receive these results and explore management options, if applicable. 11/04/2022 9:59 [facility] Final Diagnosis A. RECTUM, BIOPSY: - Tubular adenoma. 11/04/2022 9:59 [facility] Attestation By the signature below, the attending physician certifies that they have 1) personally conducted a gross and/or microscopic examination of the described specimen(s), and/or personally interpreted the results of laboratory testing of the described specimen(s), and 2) personally rendered or confirmed the above diagnosis. 11/04/2022 9:59 [facility] at 0958 Clinical History screening 11/04/2022 9:59 [facility] Gross Description A. Received in formalin labeled ? Susan W. Faherty? and ? rectal polyp? is a large polypoid tissue fragment measuring 1.3 x 1.0 x 0.8 cm. The base is inked black. The specimen is trisected and entirely submitted in A1. AHILY LEBRON 11/03/2022 10:06 11/04/2022 9:59 [facility] Performing Lab [facility] 11/04/2022 9:59 [facility] Scanned Images 11/04/2022 9:59 [facility] Tissue ENTIRE RECTUM / Unknown 11/02/2022 8:00 EDT 11/03/2022 7:13 EDT Dimitri Yepez MD PATHOLOGY FRANCISCO J SALDAÑA [facility] [address] [place] [address] documented in this encounter Visit Diagnoses Diagnosis Encounter for screening for malignant neoplasm of colon Special screening for malignant neoplasms, colon documented in this encounter Care Teams Patient Carrier Relationship Specialty Start Date End Date Unknown, Provider, PCP - General 10/25/22 documented as of this encounter
--- OUTSIDE RECORDS SUMMARY | 2024-03-23 01:10 | XMS_ITS | Encounter Summary ---
Author Organization [facility] Address [address] [place] [address] Care Team Providers Care Communications Marketing Intern Name Role Phone Jing Benson REELING MACHINE OPERATOR Primary Care Provider [phone] Reason for Visit * Reason Comments Post-OP Follow Up S/P excision, left s houlder 01/25/11 Encounter Details Date Type Department Care Team (Latest Contact Info) Description 02/03/2011 11:45 EDT Office Visit [facility] Plastic, Reconstructive & Cosmetic Surgery - [address], [address] [place] [address] Mickey Granados PA [address] [place] [address], [facility] [address] [place], [place] [id number] Neoplasm of uncertain behavior of skin (Primary Dx) Discharge Disposition: Auto Discharge Social History Tobacco Use Types Packs/Day Years Used Date Smoking Tobacco: Never Assessed Sex and Gender Information Value Date Recorded Sex Assigned at Female 06/01/2021 10:49 EST Gender Identity Female 06/01/2021 10:49 EST Sexual Orientation Not on file documented as of this encounter Discharge Disposition Disposition Code Departure Means Destination Auto Discharge documented in this encounter Progress Notes * Betzy Turner PA - 02/03/2011 1355 EDT SUBJECTIVE: Susan Hobson returns in followup from a skin excision on her left shoulder. She is doing well. OBJECTIVE: On examination this is healing well, without sign of infection or dehiscence. I reviewedthe pathology which showed: Skin of shoulder, left posterior, excision: 1. Epidermal reparative change and dermal scar. See comment. 2. No melanocytic proliferation identified. IMPRESSION: Doing well; POD #9 PLAN: Sutures were removed by Umu Graham RN. We discussed scar care, and the importance of sunscreen. Follow up here on an as needed basis. documented in this encounter Plan of Treatment Not on file documented as of this encounter Visit Diagnoses Diagnosis Neoplasm of uncertain behavior of skin- Primary documented in this encounter Care Teams Communications Marketing Intern Relationship Specialty Start Date End Date Jing Benson NP [address] [place] [address] PCP - General 01/05/11 03/31/21 documented as of this encounter
--- OUTSIDE RECORDS SUMMARY | 2024-03-23 01:10 | XMS_ITS | Encounter Summary ---
Author Organization [facility] Address [address] [place] [address] Care Team Providers Care Computer Compositor Name Role Phone Jing Benson STEEL BARREL REAMER Primary Care Provider [phone] Reason for Referral * Consult (Routine) - Closed Specialty Diagnoses / Procedures Referred By Av donovan Referred To Contact Diagnoses Neoplasm of uncertain behavior of skin Procedures AK EXC SKIN BENIG 1.1-2 CM TRUNK,ARM,LEG Enrique Andrade MD [address] [place] [address] [place] [phone] Referral ID Status Reason Start Date Expiration Date V isits Requested Visits Authorized [id number] Closed Specialty Services Required 01/05/2011 1 1 Question Answer Reason for Request: office procedure Comments Office procedure: Excision Severely atypical melanocytic proliferation. left shoulder CPT= 06898 local, 1 hour, f/u = 7-10 days Reason for Visit * Reason Comments Nevus biopsy left shoulder posterior Encounter Details Date Type Department Care Team (Late st Contact Info) Description 01/05/2011 14:00 EDT Office Visit [facility] Plastic, Reconstructive & Cosmetic Surgery - [address], [address] [place] [address] Enrique Andrade MD [address] [place] [address] [place] [phone] Neoplasm of uncertain behavior of skin (Primary [...] documented in this encounter Progress Notes * Enrique Andrade MD - 01/05/2011 1437 EDT Chief Complaints: Chief Complaint Patient presents with ??? Nevus biopsy left shoulder posterior Subjective: Susan Hobson is a 40 y.o. 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 The lesion is increasing diameter, darkening color. The patient reports that she had presented to Jing Benson, who performed a shave biopsy on 12/14/2010. 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 She is sent to me for consultation and possible surgicalmanagement. Patient Active Problems: There is no problem list on file for this patient. Medications: No outpatient encounter prescriptions on file as of 01/05/2011. Allergies: No Known Allergies Past Medical History: She has no past medical history on file. Past Surgical History: She has no past surgical history on file. Family History: No family history on file. Health Habits: History Substance Use Topics ??? Smoking status: Not on file ??? Smokeless tobacco: Not on file ??? Alcohol Use: Not on file Vitals: There were no vitals taken for this visit. Physical Exam: alert, cooperative, oriented HEENT: normal atraumatic, no neck masses, normal thyroid, no jvd Skin: mild actinic changes in her exposed skin. flat ovoid macule - healing left shoulder, 6 mm in diameter. Assessment: 40 y.o. 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 left shoulder, status post shave biopsy with positive margins. Plan: Surgical excision is medically indicated. I talked with Susan Hobson about her treatment options. These included excision in the office under local anesthetic using permanent sections for margin control or excision in the hospital using frozen sections for margin control. After discussing these options, she has elected to proceed with office excision, which will be scheduled at her convenience. Orders: There are no diagnoses linked to this encounter. I spent 15 minutes with this patient; 10 minutes was spent in [id number] counseling and coordination of care. Enrique Andrade MD 01/05/2011 14:35 documented in this encounter Plan of Treatment Scheduled Referrals Name Type Priority Associated Diagnoses Orde r Schedule AMB CONSULT PROCEDURE TO BE SCHEDULED Outpatient Referral Routine Neoplasm of uncertain behavior of skin Ordered: 01/05/2011 documented as of this encounter Visit Diagnoses Diagnosis Neoplasm of uncertain behavior of skin- Primary documented in this encounter Care Teams Computer Compositor Relationship Specialty Start Date End Date Jing Benson, STEEL BARREL REAMER [address] [place] [address] PCP - General 01/05/11 03/31/21 documented as of this encounter
--- OUTSIDE RECORDS SUMMARY | 2024-03-23 01:10 | XMS_ITS | Encounter Summary ---
Author Organization [facility] Address [address] [place] [address] Care Team Providers Care Computer Forwarding System Markup Clerk Name Role Phone Unknown, Provider Primary Care Provider [phone] Encounter Details Date Type Department Care Team (Late st Contact Info) Description 03/31/2005 Results Only [facility] - Maple conversion [address] [place] [address] Eileen Saucedo PA-C [address] [place] [phone] Social History Tobacco Use Types Packs/Day Years Used Date Smoking Tobacco: Never Assessed Sex and Gender Information Value Date Recorded Sex Assigned at Female 06/01/2021 10:49 EST Gender Identity Female 06/01/2021 10:49 EST Sexual Orientation Not on file documented as of this encounter Plan of Treatment Not on file documented as of this encounter Procedures Procedure Name Priority Date/Time Associated Diagnosis Comments CYTOPATHOLOGY Routine 03/31/2005 0:00 EDT documented in this encounter Results * CYTOPATHOLOGY (03/31/2005 0:00 EDT) Pathology Report: CYTOPATHOLOGY REPORT Reports generated via electronic interface contain original data; however they are lacking the format of the original report. Caution should be taken when reading/interpreti ng unformatted reports. Name: ? SUSAN HOBSON ? Accession #: ? [id number] : ? 1970 (Age: 34) ??F ?Collect Date: ? 03/31/2005 Location: ? [facility] ? Receive Date: ? 03/31/2005 Provider: ?EILEEN SAUCEDO PA-C Copy to: ? Specimen/Source: ?ThinPrep Pap Test, Source Not Provided, processed on [facility] ThinPrep Imaging System, with manual evaluation Last Menstrual Period: ? SPECIMEN ADEQUACY ? Satisfactory for Evaluation - transformation zone component present - scant squamous epithelial component GENERAL CATEGORIZATION ? Negative for Intraepithelial Lesion or Malignancy ? Document reviewed and electronically signed by: ? MADDI Hawthorne(ASCP) ? Report Date: ??04/06/2005 13:40 End of Report [facility] 03/31/2005 03/31/2005 Eileen Saucedo PA-C PATHOLOGY ORDERABLES [facility] [address] [place] [address] documented in this encounter Visit Diagnoses Not on filedocumented in this encounter Care Teams Computer Forwarding System Markup Clerk Relationship Specialty Start Date End Date Unknown, Provider, PCP - General 10/15/08 01/04/11 documented as of this encounter
--- OUTSIDE RECORDS SUMMARY | 2024-03-23 01:10 | XMS_ITS | Encounter Summary ---
Author Organization [facility] Address [address] [place] [address] Care Team Providers Care Tree Expert Name Role Phone Jing Benson CONSULTING APPLICATION ENGINEER Primary Care Provider [phone] Encounter Details Date Type Department Care Team (Latest Contact Info) Description 05/22/2012 10:36 EST - 05/22/2012 23:59 EST Hospital Encounter [facility] [address] [place] [address] Jing Benson, CONSULTING APPLICATION ENGINEER [address] [place] [address] Discharge Disposition: Home or Self Care Social History Tobacco Use Types Packs/Day Years Used Date Smoking Tobacco: Never Assessed Sex and Gender Information Value Date Recorded Sex Assigned at Female 06/01/2021 10:49 EST Gender Identity Female 06/01/2021 10:49 EST Sexual Orientation Not on file documented as of this encounter Discharge Disposition Disposition Code Departure Means Destination Home or Self Assisted documented in this encounter Plan of Treatment Not on file documented as of this encounter Procedures Procedure Name Priority Date/Time Associated Diagnosis Comments MA MAMMO SCREENING DIGITAL 08/06/2013 10:13 EST documented in this encounter Results * MA MAMMO SCREENING DIGITAL (08/06/2013 10:13 EST) Anatomical Region Laterality Modality Other 08/06/2013 10:1 3 EST 08/06/2013 15:27 EST Narrative 08/06/2013 15:27 EST Comparison has been made to previous images. Bilateral Breast Findings: (Routine digital views with CAD) There are scattered fibroglandular densities (25% - 50% fibroglandular). No significant masses, calcifications or other abnormalities are seen. IMPRESSION: BILATERAL BREASTS: Negative, no evidence of malignancy. Normal interval follow-up is recommended in 12 months. OVERALL ASSESSMENT - CATEGORY 1 - NEGATIVE END OF IMPRESSION These results will be communicated to your patient via a lay letter from Radiology. If any additional imaging is needed we will contact your patient directly. Procedure Note 08/06/2013 Comparison has been made to previous images. Bilateral Breast Findings: (Routine digital views with CAD) There are scattered fibroglandular densities (25% - 50% fibroglandular). No significant masses, calcifications or other abnormalities are seen. IMPRESSION: BILATERAL BREASTS: Negative, no evidence of malignancy. Normal interval follow-up is recommended in 12 months. OVERALL ASSESSMENT - CATEGORY 1 - NEGATIVE END OF IMPRESSION These results will be communicated to your patient via a lay letter from Radiology. If any additional imaging is needed we will contact your patient directly. Jing Benson NP IMG MAMMOGRAPHY FRANCISCO J SALDAÑA documented in this encounter Visit Diagnoses Not on filedocumented in this encounter Care Teams Tree Expert Relationship Specialty Start Date End Date Jing Benson, [place]EL [address] [place] [address] PCP - General 01/05/11 03/31/21 documented as of this encounter
--- OUTSIDE RECORDS SUMMARY | 2024-03-23 01:10 | XMS_ITS | Encounter Summary ---
Author Organization [facility] Address [address] [place] [address] Care Team Providers Care University Archivist Name Role Phone Jing Benson WATER AND GAS HELPER Primary Care Provider [phone] Encounter Details Date Type Department Care Team (Latest Contact Info) Description 08/06/2013 9:37 EST - 08/06/2013 23:59 EST Hospital Encounter [address] [address] Jing Benson, WATER AND GAS HELPER [address] [place], [place] [address] Discharge Disposition: Auto Discharge Social History Tobacco Use Types Packs/Day Years Used Date Smoking Tobacco: Never Assessed Sex and Gender Information Value Date Recorded Sex Assigned at Female 06/01/2021 10:49 EST Gender Identity Female 06/01/2021 10:49 EST Sexual Orientation Not on file documented as of this encounter Discharge Diagnoses Diagnosis V76.11 SCREENING MAMMOGRAM FOR HIGH-RISK PATIENT, MALIGNANT NEOPLASM OF BREAST[ICD-9-CM] V15.89 PERS HX HEALTH HAZARDS NEC[ICD-9-CM] documented in this encounter Discharge Disposition Disposition Code Departure Means Destination Auto Discharge Home documented in this encounter Plan of Treatment Not on file documented as of this encounter Visit Diagnoses Not on filedocumented in this encounter Care Teams University Archivist Relationship Specialty Start Date End Date Jing Benson NP [address] [place], [place] [id number] PCP - General 01/05/11 03/31/21 documented as of this encounter
--- OUTSIDE RECORDS SUMMARY | 2024-03-23 01:10 | XMS_ITS | Encounter Summary ---
[place] [address] Care Team Providers Care Arbor Press Operator Name Role Phone Edwar Velasco Primary Care Provider [phone] Encounter Details Date Type Department Care Team (Latest Contact Info) Description 04/20/2023 Travel Social History Tobacco Use Types Packs/Day Years [...] on filedocumented in this encounter Care Teams Arbor Press Operator Relationship Specialty Start Date End Date Edwar Velasco PA [address] [place] [address] PCP - General Internal Medicine 02/04/23 documented as of this encounter
--- OUTSIDE RECORDS SUMMARY | 2024-03-23 01:10 | XMS_ITS | Encounter Summary ---
Author Organization [facility] Address [address] [place] [address] Care Team Providers Care Gis Database Administrator Name Role Phone Unavailable Primary Care Provider Unavailabl e Encounter Details Date Type Department Care Team (Latest Contact Info) Description 02/23/2007 12:41 EDT Hospital Encounter [facility] - Other [address] [place] [address] Stephanie Malagon MD Discharge Disposition: Home or Self Care Social [...]
--- OUTSIDE RECORDS SUMMARY | 2024-03-23 01:10 | XMS_ITS | Encounter Summary ---
Author Organization [facility] Address [address] [place] [address] Care Team Providers Care Risk Specialist Name Role Phone Unknown, Provider Primary Care Provider [phone] Encounter Details Date Type Department Care Team (Late st Contact Info) Description 08/11/2004 Results Only [facility] [address] [place] [address] Jing Benson, QUALITY ASSURANCE QA LAB ANALYST [address], [place] [address] Social History Tobacco Use Types Packs/Day Years Used Date Smoking Tobacco: Never Assessed Sex and Gender Information Value Date Recorded Sex Assigned at Female 06/01/2021 10:49 EST Gender Identity Female 06/01/2021 10:49 EST Sexual Orientation Not on file documented as of this encounter Plan of Treatment Not on file documented as of this encounter Procedures Procedure Name Priority Date/Time Associated Diagnosis Comments COMPLETE BLOOD COUNT Routine 08/11/2004 9:30 EST HEMOGLOBIN A1C Routine 08/11/2004 9:30 EST documented in this encounter Results * (ABNORMAL) HEMAGRAM (08/11/2004 9:30 EST) WBC 4.29 4.0 - 12.4 K/cmm [facility] RBC 4.70 3.86 - 5.04 M/cmm [facility] Hemoglobin 14.5 11.6 - 15.2 gm/dl [facility] HCT 42.1 34.9 - 44.4 % [facility] MCV 90 81 - 98 fl [facility] MCH 30.9 26.7 - 33.3 pg [facility] MCHC 34.5 32.1 - 35.9 gm/dl [facility] PLT 368(H) 141 - 320 K/cmm [facility] RDW-CV 12.1 11.7 - 14.6 % [facility] 08/11/2004 9:30 EST 08/11/2004 11:52 EST Jing Benson QUALITY ASSURANCE QA LAB ANALYST HEMATOLOGY & PF4 ORD ERABLES [facility] [address] [place] [address] * HEMOGLOBIN A1C (08/11/2004 9:30 EST) Hemoglobin A1C 4.8 % [facility] Comment: Reference Range: <6% Normal Range <7% Recommended goal by ADA guidelines 7-8% Suboptimal by ADA guidelines >8% Further action suggested by ADA guidelines 08/11/2004 9:30 EST 08/11/2004 11:52 EST Jing Benson NP CHEMISTRY & BLOOD GA S ORDERABLES Performing Organization Address City/[facility]/ZIP Co de Phone Number [facility] [address] [place] [address] documented in this encounter Visit Diagnoses Not on filedocumented in this encounter Care Teams Risk Specialist Relationship Specialty Start Date End Date Unknown, Provider, PCP - General 10/15/08 01/04/11 documented as of this encounter
--- OUTSIDE RECORDS SUMMARY | 2024-03-23 01:10 | XMS_ITS | Encounter Summary ---
Author Organization [facility] [address] Care Team Providers Care Emergency Operator Name Role Phone Edwar Velasco Primary Care Provider [phone] Encounter Details Date Type Department Care Team (Late st Contact Info) Description 07/29/2023 Telephone [place] [address] Caitlin Bergman Social History Tobacco Use Types Packs/Day Years Used Date Smoking Tobacco: Never Smokeless Tobacco: Never Sex and Gender Information Value Date Recorded Sex Assigned at Not on file Gender Identity Not on file Sexual Orientation Not on file documented as of this encounter Miscellaneous Notes * Telephone Encounter - Caitlin Bergman - 07/29/2023 11:36 AM EST I spoke with Susan. We have scheduled Surgery with Dr. Doyle to be on 09/29/23. Letter sent. documented in this encounter Plan of Treatment Not on file documented as of this encounter Visit Diagnoses Not on filedocumented in this encounter Care Teams Emergency Operator Relationship Specialty Start Date End Date Edwar Velasco PA [address] [place] [address] PCP - General Internal Medicine 02/04/23 documented as of this encounter
--- OUTSIDE RECORDS SUMMARY | 2024-03-23 01:10 | XMS_ITS | Encounter Summary ---
Author Organization [facility] Address [address] [place] [address] Care Team Providers Care Museum Director Name Role Phone Jing Benson REMITTANCE CLERK Primary Care Provider [phone] Reason for Visit * Reason Comments Nevus left shoulder Encounter Details Date Type Department Care Team (Late st Contact Info) Description 01/25/2011 13:00 EDT Office Visit [facility] Plastic, Reconstructive & Cosmetic Surgery - [address], [address] [place] [id number] Leslee Morrissey MD [address] [place] [address] [place] [phone] Neoplasm of uncertain behavior of skin (Primary Dx) Discharge Disposition: Auto Discharge Social History Tobacco Use Types Packs/Day Years Used Date Smoking Tobacco: Never Assessed Sex and Gender Information Value Date Recorded Sex Assigned at Female 06/01/2021 10:49 EST Gender Identity Female 06/01/2021 10:49 EST Sexual Orientation Not on file documented as of this encounter Patient Instructions * Patient Instructions* Flor Parnell RN - 01/25/2011 13:25 EDT PLASTIC AND RECONSTRUCTIVE SURGERY [facility] DISCHARGE INSTRUCTIONS for Office Based Surgery The instructions below are provided to assist you with your recovery following your procedure: Limit activity for 48 hours. Neck and head surgery patients should sleep with head elevated on extra pillows to control bleedingand swelling for 48 hours. Avoid bending forward and stooping. If excessive redness, swelling, pus or streaking appear near wound, call the office. Showering is allowed starting Indira evening. Pat incision dry. Leave Steri Strips in place until they fall off. The use of Tylenol or Advil is allowed for post-operative discomfort. Take as directed. Other Instructions: Avoid stretching pulling and pushing activities until three weeks post op. Flor Parnell RN Office Line (17/01): [phone] documented in this encounter Discharge Disposition Disposition Code Departure Means Destination Auto Discharge documented in this encounter Progress Notes * Leslee Morrissey MD - 01/22/2011 1947 EDT MINOR SURGERY PHYSICIAN REPORT DATE: 01/22/2011 PROCEDURE PHYSICIAN: LESLEE MORRISSEY MD, FACS PRE-OP DX: 1. Neoplasm of uncertain behavior of skin (238.2) POST-OP DX: 1. Neoplasm of uncertain behavior of skin (238.2) PROCEDURE: Excision Atypical melanocytic proliferation, shoulder , 9 mm in diameter; complex wound closure of shoulder, 2.5 cm in length. ANESTHESIA: Local PREP: chlorhexidine INDICATIONS: The indication, risks, benefits and alternatives to this procedure were discussed with the patient and all questions were answered. Informed consent was obtained in writing. The patient had no contraindications to surgery with local anesthesia. Immediately prior to procedure a time out was calledto verify the correct patient, procedure, equipment, manager decision support and site/side marked as required. PROCEDURE RECORD: Susan Hobson was positioned right lateral decubitus on the procedure room table. Her shoulder was prepped and draped in the usual sterile fashion, infiltrated with Lidocaine 1% with epinephrine. An oblique elliptical skin incision was performed on her shoulder. The specimen was excised and a suture was placed on the superior pole. Wound edges were widely undermined and advanced. Hemostasis was established with pressure. The wound was closed using 3-0 Monocryl deep sutures and 5-0 Prolene superficial sutures. The patient tolerated the procedure well and was discharged to home in good condition. I was present for the entire case. SPECIMEN: Yes SENT TO LABORATORY: Yes COMPLICATIONS: No ESTIMATED BLOOD LOSS: minimal There were no intravenous fluids. No packs or drains were retained. Leslee Morrissey MD, FACS, 01/22/2011, 19:47 documented in this encounter Miscellaneous Notes * Scanned Note-Null - Erik, Freight Weigher - 03/05/2011 1311 EDT documented in this encounter Plan of Treatment Scheduled Orders Name Type Priority Associated Diagnoses Orde r Schedule SURGICAL PATHOLOGY- ORDER ONLY Pathology Routine Neoplasm of uncertain behavior of skin Ordered: 01/25/2011 documented as of this encounter Visit Diagnoses Diagnosis Neoplasm of uncertain behavior of skin- Primary documented in this encounter Care Teams Museum Director Relationship Specialty Start Date End Date Jing Benson NP [address] [place] [address] PCP - General 01/05/11 03/31/21 documented as of this encounter
--- OUTSIDE RECORDS SUMMARY | 2024-03-23 01:10 | XMS_ITS | Encounter Summary ---
Author Organization [facility] Address [address] [place] [address] Care Team Providers Care Sexologist Name Role Phone Jing Benson YEAST CAKE CUTTER Primary Care Provider [phone] Encounter Details Date Type Department Care Team (Latest Contact Info) Description 05/08/2012 13:15 EST - 05/08/2012 23:59 EST Hospital Encounter [address] [address] Jing Benson, YEAST CAKE CUTTER [address] [place] [address] Discharge Disposition: Auto Discharge Social History Tobacco [...] on filedocumented in this encounter Care Teams Sexologist Relationship Specialty Start Date End Date Jing Benson NP [address] [place], [place] [address] PCP - General 01/05/11 03/31/21 documented as of this encounter
--- OUTSIDE RECORDS SUMMARY | 2024-03-23 01:10 | XMS_ITS | Clinical Summary ---
[place] [address] Care Team Providers Care Sewer Pipe Sorter Name Role Phone Edwar Velasco Primary Care Provider [phone] Allergies No known active allergies Medications Medication Sig Dispensed Refills Start Date End Date Status HYDROcodone-acetaminop hen ([place]) 5-325 mg tablet Take 1 tablet by mouth every 6 hours as needed for Pain. 8 tablet 09/29/2023 Active Active Problems Problem Noted Date Diagnosed Date Varicose veins of both lower extremities with pa in 04/20/2023 Venous insufficiency of both lower extremities 1 Neoplasm of uncertain behavior of skin 1 [...] on file Sexual Orientation Not on file Last Filed Vital Signs Vital Sign Reading [...] Mass Index 22.74 09/29/2023 6:39 AM EDT Plan of Treatment Health Maintenance Due Date Last Done Comments CT Colonography 1971 Colonoscopy 1971 Colorectal Cancer Screening 1971 FIT DNA 1971 FIT 1971 Sigmoidoscopy (10 year) with FIT yearly 1971 Sigmoidoscopy 1971 HIV screen 1989 Hepatitis C Screening 1989 Hepatitis B vaccine (0-59 yrs) (1) 1990 Tetanus/Diphtheria/Pertussis Vaccines (1 - Tdap) 05/23 HPV test 2001 PAP Smear 2001 Breast Cancer Share Decision Needed 2011 Breast Cancer screening 2011 Zoster vaccine (1 of 2) 2021 Covid-19 Vaccine (1 - 2022- season) 2024 Influenza (Flu) vaccine (1 o f 1 - Influenza standard series) 02/26/2024 Care Teams Sewer Pipe Sorter Relationship Specialty Start Date End Date Edwar Velasco PA [address] [place] [address] PCP - General Internal Medicine 02/04/23
--- OUTSIDE RECORDS SUMMARY | 2024-03-23 01:10 | XMS_ITS | Encounter Summary ---
Author Organization [facility] Address [address] [place] [address] Care Team Providers Care Senior Power Plant Operator Name Role Phone Nancy Corey MD Primary Care Provider [phone] Unknown, Provider Primary Care Provider [phone] Encounter Details Date Type Department Care Team (Late st Contact Info) Description 08/06/2022 Lab Requisition [facility] Pathology & Laboratory Medicine - [address] [address] [address] [place] [address] Encounter for other general examination Social History Tobacco Use Types Packs/Day Years [...] Priority Date/Time Associated Diagnosis Comments PAP TEST Today 08/05/2022 13:30 EST Encounter for other general examination HPV DNA DETECTION WITH GENOTYPING, PCR Today 08/05/2022 13:30 EST Encounter for other general examination documented in this encounter Results * HUMAN PAPILLOMAVIRUS (HPV) DETECTION-HIGH RISK TYPES (08/05/2022 13:30 EST) HPV other High Risk types, PCR Negative Negative 08/19/2022 12:43 [facility] Comment:No E6 or E7 mRNA is detected from HPV types 16,18,31,33,35,39,45,51,52,56,58,59,66, and 68 by expediter service order mediated amplification. Papanicolaou smear specimen (specimen) CERVIX UTERI STRUCTURE / Unknown 08/05/2022 13:30 EST 08/18/2022 10:52 EST Ramandeep Mary Chele [facility] MICROBIOLOGY - GENERAL ORDERABLES [facility] [address] [place] [address] * PAP TEST (08/05/2022 13:30 EST) Specimens A. Cervix and/or Endocervix , ThinPrep Imaging System with Manual Evaluation 08/19/2022 12:43 [facility] Specimen Adequacy Satisfactory for Evaluation - transformation zone component present 08/19/2022 12:43 [facility] General Categorization Negative for intraepithelial lesion or malignancy 08/19/2022 12:43 [facility] Attestation . 08/19/2022 12:43 [facility] at 1243 Clinical History See below 08/19/19 12:43 [facility] HPV The result for the Human Papillomavirus (HPV) Detection-High Risk Types is Negative. No E6 or E7 mRNA is detected from HPV types 16,18,31,33,35,39 ,45,51,52,56,58,5 9,66, and 68 by expediter service order mediated amplification.Ludmila ting was performed on specimen [id number] and was resulted on 08/19/2022 1243 EST by MI, LAB INSTRUMENT RESULTS IN 08/19/2022 12:43 [facility] Performing Lab [facility] 08/19/2022 12:43 [facility] Scanned Images 08/19/2022 12:43 [facility] Papanicolaou smear specimen (specimen) CERVIX UTERI STRUCTURE / Unknown 08/05/2022 13:30 EST 08/06/2022 12:32 EST Ramandeep Mary Chele [facility] PATHOLOGY ORDE PIOTR Performing Organization Address City/State/[facility] Co de Phone Number [facility] [address] [place] [address] documented in this encounter Visit Diagnoses Diagnosis Encounter for other general examination documented in this encounter Care Teams Senior Power Plant Operator Relationship Specialty Start Date End Date Nancy Corey MD [address] [place] [phone] PCP - General Family Medicine - Primary Care 04/01/21 10/24/22 Unknown, ProviderMD PCP - General 10/25/22 documented as of this encounter
--- OUTSIDE RECORDS SUMMARY | 2024-03-23 01:11 | XMS_ITS | Encounter Summary ---
Author Organization [facility] [place] [address] Care Team Providers Care Governor Assembler Hydraulic Name Role Phone Edwar Velasco Primary Care Provider [phone] Reason for Referral * Consultation (Routine) - Closed Specialty Diagnoses / Procedures Referred By Contac t Referred To Contact Vascular Surgery Diagnoses Asymptomatic varicose veins of bilateral lower extremities ROUTINE, TANSKI, BLE Edwar Velasco PA [address] [place] [address] [facility] Vascular Surg [address] [place] [address] Referral ID Status Reason Start Date Expiration Date V isits Requested Visits Authorized [id number] Closed Consult, Test & Treat PCP Updated and/or Approved 02/04/2023 02/04/2024 12 12 Encounter Details Date Type Department Care Team (Latest Contact Info) Description 02/04/2023 Transcribe Orders eDH Incoming Referrals [phone] Edwar Velasco PA [address] [place] [address] Asymptomatic varicose veins of bilateral lower extremities Social History Tobacco Use Types Packs/Day Years Used Date Smoking Tobacco: Never Assessed Sex and Gender Information Value Date Recorded Sex Assigned at Not on file Gender Identity Not on file Sexual Orientation Not on file documented as of this encounter Plan of Treatment Scheduled Referrals Name Type Priority Associated Diagnoses Orde r Schedule Referral to Vascular Surgery Outpatient Referral Routine Asymptomatic varicose veins of bilateral lower extremities Ordered: 02/04/2023 documented as of this encounter Visit Diagnoses Diagnosis Asymptomatic varicose veins of bilateral lower extremities Asymptomatic varicose veins documented in this encounter Care Teams Governor Assembler Hydraulic Relationship Specialty Start Date End Date Edwar Velasco PA [address] [place] [address] PCP - General Internal Medicine 02/04/23 documented as of this encounter
--- OUTSIDE RECORDS SUMMARY | 2024-03-23 01:11 | XMS_ITS | Encounter Summary ---
[place] [address] Care Team Providers Care Pocket Maker Name Role Phone Edwar Velasco Primary Care Provider [phone] Encounter Details Date Type Department Care Team (Late st Contact Info) Description 04/20/2023 10:00 AM EDT Tech [place] [id number] Tosin Yusuf, LUCIA Varicose veins of both lower extremities, unspecified [...] Procedure Name Priority Date/Time Associated Diagnosis Comments VENOUS VALVULAR INCOMP, BILAT LEGS Routine 04/20/2023 10:02 AM EDT Varicose veins of both lower extremities, unspecified whether complicated documented in this encounter Results * Venous Valvular Incomp, Bilat Legs (04/20/2023 10:02 AM EDT) VB Text Report Department: Vascular Surgery Lab Patient: [id number] (SUSAN HOBSON) CPT: 37033 Referring Physician: TERRY LUCERO ?? Phone: Indications: Patient with bilateral varicose veins (right worse than left), ? venous reflux Patient Positioning: ??Reverse Trendelenburg Findings: Right ?Reflux?Diameter (mm) ??Depth (mm) ?? Common Femoral Vein ??Competent ? Femoral Vein ? Competent ? Popliteal ?Competent ? GSV, Near SFJ ?Competent ?4.6 ?10.1 ?? GSV, Proximal Thigh ??Reflux ? 3.2 ?10.5 ?? GSV, Mid Thigh ? Reflux ? 5.0 ?10.9 ?? GSV, Distal Thigh ?Competent ?1.5 ?11.9 ?? GSV, ??Knee ? Competent ?1.1 ? 9.9 ?? GSV Prox Calf ?Reflux ? 2.1 ? 9.7 ?? GSV, Mid Calf ?Reflux ? 1.9 ? 7.1 ?? GSV, Distal Calf ? Competent ?1.2 ? 4.6 ?? SSV ?Competent ? Prox ASV ? Competent ?3.1 ? 7.6 ?? Left ? Reflux?Diameter (mm) ??Depth (mm) ?? Common Femoral Vein ??Reflux ? Femoral Vein ? Competent ? Popliteal ?Competent ? GSV, Near SFJ ?Competent ?4.8 ? 7.0 ?? GSV, Proximal Thigh ??Reflux ? 2.2 ? 9.5 ?? GSV, Mid Thigh ? Competent ?2.7 ?12.2 ?? GSV, Distal Thigh ?Competent ?2.3 ?15.2 ?? GSV, ??Knee ? Competent ?1.8 ? 8.0 ?? GSV Prox Calf ?Competent ?1.9 ? 6.8 ?? GSV, Mid Calf ?Competent ?1.5 ? 6.1 ?? GSV, Distal Calf ? Competent ?1.2 ? 7.2 ?? SSV ?Competent ? Interpretation: RIGHT: No evidence of significant reflux [...] the fascia in the mid thigh, becomes varicose/associat es with the incompetent GSV varicose vein and [...] in our vascular lab database for comparison. Electronically Signed by: JOSE ANGEL FERNÁNDEZ III, MD on 2023-04-20 12:20:26 PM [facility] VB Text Report End of Report [facility] 04/20/2023 10:0 2 AM EDT Terry Lucero APRN VASCULAR ORDERABLES [facility] documented in this encounter Visit Diagnoses Diagnosis Varicose veins of both lower extremities, unspecified whether complicated documented in this encounter Care Teams Pocket Maker Relationship Specialty Start Date End Date Edwar Velasco PA [address] [place] [address] PCP - General Internal Medicine 02/04/23 documented as of this encounter
--- OUTSIDE RECORDS SUMMARY | 2024-03-23 01:11 | XMS_ITS | Encounter Summary ---
Author Organization [facility] [place] [address] Care Team Providers Care Fender Finisher Name Role Phone Edwar Velasco Primary Care Provider [phone] Reason for Visit * Consultation (Routine) - Closed Specialty Diagnoses / Procedures Referred By Av t Referred To Contact Vascular Surgery Diagnoses Asymptomatic varicose veins of bilateral lower extremities ROUTINE, JOLENE, Edwar Yanez PA [facility] [address] [place] [address] [facility] [address] [place] [address] Referral ID Status Reason Start Date Expiration Date V isits Requested Visits Authorized [id number] Closed Consult, Test & Treat PCP Updated and/or Approved 02/04/2023 02/04/2024 12 12 Encounter Details Date Type Department Care Team ([facility] st Contact Info) Description 04/20/2023 1:00 PM EDT Office [place] [address] Vladislav Doyle III, MD [address] [facility] [place] [address] Venous insufficiency of both lower extremities; Varicose veins of both lower extremities with pain Social History Tobacco Use Types Packs/Day Years Used Date Smoking Tobacco: Never Smokeless Tobacco: Never Tobacco Cessation:Counseling Given: Not Answered Sex and Gender Information Value Date Recorded Sex Assigned at Not on file Gender Identity Not on file Sexual Orientation Not on file documented as of this encounter Last Filed Vital Signs Vital Sign Reading Time Taken Comments Blood Pressure 137/81 04/20/2023 11:19 AM EDT Pulse 59 04/20/2023 11:19 AM EDT Temperature - - Respiratory Rate - - Oxygen Saturation - - Inhaled Oxygen Concentration - - Weight 64.7 kg (142 lb 9.6 oz) 04/20/2023 11:19 AM EDT reported Height 170.2 cm (5' 7) 04/20/2023 11:19 AM EDT reported Body Mass Index 22.33 04/20/2023 11:19 AM EDT documented in this encounter Progress Notes * Vladislav Doyle III, MD - 04/20/2023 1:00 PM EDT OUTPATIENT VASCULAR SURGERY CONSULTATION Reason for Visit: Lower extremity varicose veins, venous insufficiency. History of Present Illness: Susan Arnold is a 52 y.o. female seen [...] is followed by [facility] in this regard. She complains of significant leg swelling. She is otherwise healthy and active. She denies chest pain or syncope, or any heart disease. She denies dyspnea or sleep apnea. She has not had any prior surgery. She has had sedation or general anesthesia for colonoscopy. She denies abdominal pain or problems. She never smoked. Patient Active Problem List Diagnosis Code Neoplasm of uncertain behavior of skin D48.5 Varicose veins of both lower extremities with pain I83.813 Venous insufficiency of both lower extremities I87.2 No current outpatient medications on file. No Known Allergies Review of Systems: Constitutional (weight change, fever) - Denies Neuro (dizziness, seizures, numbness, tingling) - Denies Eyes (vision) - Denies Ears, nose, throat (hearing) - Denies Cardiovascular (CP) - Denies Respiratory (SOB) - Denies GI (abd pain, nausea, emesis, blood in stool) - Denies (hematuria, dysuria, frequency) - Denies Muscoloskeletal (extremity pain, weakness) - see HPI Skin (ulcers, rashes) - see HPI Functional Status/Social Hx: No history of tobacco use. 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 Family Hx: No history of DVT or thrombophilia, father and brother with varicose veins. She thinks her father may have had an aneurysm or blood clot, but is uncertain. Physical Exam: BP 137/81 (BP Location (NBP): Right arm, Patient Position: Sitting, BP Cuff Sizes: Adult (25-34 cm)) Pulse 59 Ht 170.2 cm (5' 7) Comment: reported Wt 64.7 kg (142 lb 9.6 oz) Comment: reported BMI 22.33 kg/m?? General - NAD, seen alone Neuro - Alert and Oriented, Motor Sensory [...] DP and PT pulses are readily palpable. Vascular Exam: R L Carotid 2/2 bruit (-) 2/2 bruit (-) Radial 2/2 2/2 Femoral 2/2 2/2 Popliteal DP 2/2 2/2 PT 2/2 2/2 Labs: None relevant. Studies: Bilateral lower extremity venous duplex 04/20/2023: Findings: [...] lab database for comparison. Assessment and Plan: Susan Arnold presents with symptomatic right lower extremity varicose veins, and bilateral venous insufficiency. On the left, she has only a few modest varicosities and I am not convinced she has any symptoms related to those. On the right, she has had escalating varicosevein symptoms that are quite difficult despite several years of routine 20-30 mmHg compression stockings. She does not have stasis dermatitis or ulceration. Bilateral lower extremity [...] or August following a vacation in July. Thank you for the opportunity to participate in her care. Please contact me with any questions. documented in this encounter Plan of Treatment Scheduled Referrals Name Type Priority Associated Diagnoses Orde r Schedule Referral to Vascular Surgery Outpatient Referral Routine Asymptomatic varicose veins of bilateral lower extremities Ordered: 02/04/2023 documented as of this encounter Visit Diagnoses Diagnosis Venous insufficiency of both lower extremities Varicose veins of both lower extremities with pain Varicose veins of lower extremities with other complications documented in this encounter Care Teams Fender Finisher Relationship Specialty Start Date End Date Edwar Velasco PA [address] [place] [address] PCP - General Internal Medicine 02/04/23 documented as of this encounter
--- OUTSIDE RECORDS SUMMARY | 2024-03-23 01:11 | XMS_ITS | Encounter Summary ---
[place] [address] Care Team Providers Care Foreign Trade Teacher Name Role Phone Edwar Velasco Primary Care Provider [phone] Reason for Referral * Diagnostic Test (Routine) - Closed Specialty Diagnoses / Procedures Referred By Contyasmine t Referred To Contact Diagnoses Varicose veins of both lower extremities, unspecified whether complicated Procedures Venous Valvular Incomp, Bilat Legs Terry Lucero APRN [facility] [place] [address] [facility] [address] [place] [address] Referral ID Status Reason Start Date Expiration Date V isits Requested Visits Authorized [id number] Closed Specialty Service Requested 02/04/2023 02/04/2024 1 1 Encounter Details Date Type Department Care Team (Late st Contact Info) Description 02/04/2023 Orders [place] [id number] Terry Lucero APRN [facility] [place] [address] Varicose veins of both lower extremities, unspecified whether complicated Social History Tobacco Use Types Packs/Day Years Used Date Smoking Tobacco: Never Assessed Sex and Gender Information Value Date Recorded Sex Assigned at Not on file Gender Identity Not on file Sexual Orientation Not on file documented as of this encounter Plan of Treatment Not on file documented as of this encounter Results * Venous Valvular Incomp, Bilat Legs (04/20/2023 10:02 AM EDT) VB Text Report Department: Vascular Surgery Lab Patient: [id number] (SUSAN HOBSON) CPT: 26808 Referring Physician: TERRY LUCERO ?? Phone: Indications: [...] complicated documented in this encounter Care Teams Foreign Trade Teacher Relationship Specialty Start Date End Date Edwar Velasco PA [address] [place] [address] PCP - General Internal Medicine 02/04/23 documented as of this encounter
--- NOTE | 2024-03-23 08:45 | DI.MAMMO_ITS ---
Exam(s) MAMMO SCREENING EXAM: MAMMO SCREENING CLINICAL HISTORY: Z12.31 screening TECHNIQUE: Bilateral full field digital CC and MLO mammographic images were obtained with 3D tomosyn thesis and utilizing computer aided detection (CAD). COMPARISON: Available for comparison. FINDINGS: Masses/Architectural Distortion: None seen. Microcalcifications: No suspicious pleomorphic-type are seen. Skin Thickening/Nipple Retraction: None. IMPRESSION: 1. No significant interval change with no specific features of malignancy noted. 2. Unless there is more urgent need, screening mammography is recommended, as per [employer] guidelines. BI-RADS Category 1 - Negative Breast Density - Category C - Heterogeneously dense Breast density category C or D implies that the patient has dense breast tissue. Dense breast tissue is very common and is not abnormal but dense breast tissue can make it harder to find cancer on a ma mmogram. Also, dense breast tissue may increase their breast cancer risk. This information about the result of the mammogram report was provided to the patient to raise their awareness. Use this report when you speak with the patient about their risks for breast cancer, which includes their family hist ory. At that time, you may recommend for more screening tests (Ultrasound or MRI) as they might be us eful based on their risk. A negative radiographic report should not delay biopsy if a dominant or clinically suspicious mass is present. Up to ten percent of cancers are not identified on mammography. A negative report may reinforce clinical impression. Adenosis and dense breasts may obscure an underlying neoplasm. False positive reports average 6 to 10%. Patient will receive a letter notifying them of these results.
== END 2024-03-23 01:27 ==
LOC: DI 01:07
PROVIDERS: PCP Physician Assistant; Visit Provider Physician Assistant
DX: Z12.31 Encounter for screening mammogram for malignant neoplasm of breast (principal)
CPT/HCPCS: 77063; 77067

== ENCOUNTER 2025-03-29 04:14 | Outpatient (CLI) | payer BC, SELFPAY ==
--- NOTE | 2025-03-29 | DI.MAMMO_ITS ---
Exam(s) MAMMO SCREENING EXAM: MAMMO SCREENING CLINICAL HISTORY: SCREENING MAMMO Z12.31. TECHNIQUE: Bilateral full field digital CC and MLO mammographic images were obtained with 3D tomosynthesis and utilizing computer aided detection (CAD). COMPARISON: Prior mammograms were reviewed. FINDINGS: There has been no significant change in the appearance and distribution of the fibroglandular tissue. No CAD designations. There are no new spiculated masses nor malignant appearing microcalcification groups. There is no significant architectural distortion nor skin thickening-retraction. IMPRESSION: No radiographic evidence of malignancy. BI-RADS Category 1 - Negative Breast Density - Category C - The breast are heterogeneously dense, which may obscure small masses. Breast density Category C or D implies that the patient has dense breast tissue. Dense breast tissue can make it harder to find cancer on a mammogram. Dense breast tissue is also associated with an increased risk of breast cancer. This information about the result of the mammogram report was provided to the patient to raise their awareness. Use this report when you speak with the patient about their risks for breast cancer, which includes their family history. At that time, you may recommend additional screening tests (Ultrasound or MRI) as these tests may add significant information. A negative radiographic report should not delay biopsy if a dominant or clinically suspicious mass is present. Up to ten percent of cancers are not identified on mammography. A negative report may reinforce clinical impression. Adenosis and dense breasts may obscure an underlying neoplasm. False positive reports average 6 to 10%. Patient will receive a letter notifying them of these results.
== END 2025-03-29 04:34 ==
PROVIDERS: PCP Physician Assistant; Visit Provider Physician Assistant
DX: Z12.31 Encounter for screening mammogram for malignant neoplasm of breast (principal); R92.323 Mammographic fibroglandular density, bilateral breasts
CPT/HCPCS: 77063; 77067